=== PATIENT | male | born 1950 | race Caucasian/White ===

== ENCOUNTER 2020-10-02 16:34 | Outpatient (REF) | payer OTHER, SELFPAY | END 2020-10-02 16:35 | disposition home or self-care (01) | LOC: HO.LNP 16:34 | PROVIDERS: Visit Provider Internal Medicine | DX: Z20.822 Contact with and (suspected) exposure to COVID-19 (principal) | CPT/HCPCS: U0003; U0005 ==

== ENCOUNTER 2021-04-28 14:52 | Outpatient (REF) | payer OTHER, SELFPAY ==
--- NOTE | ~2021-04-28 | XR_ITS ---
EXAMINATION: XR CHEST CLINICAL INFORMATION: Wheezing COMPARISON: Previous chest x-ray January [address] January 2019 TECHNIQUE: 2 views of the chest were obtained. FINDINGS: The cardiac and mediastinal contours are stable. There is mild biapical pleural thickening that is stable. The lungs are otherwise clear. There is no pleural effusion or pneumothorax. There are degenerative changes of the spine. XR/XR chest 2V IMPRESSION: No evidence for acute disease in the chest.
[2021-04-28 16:37] LABS: Appearance Urine CLEAR; Color Urine YELLOW; Glucose Urine UA 500 MG/DL (NEG); Leukocyte Esterase Urine NEG (NEG); Nitrite Urine NEG (NEG); PH 5.5 (5.0-8.0); Specific Gravity - Urine >= 1.030 (1.005-1.025); Urine Blood NEG (NEG); Urine Ketones NEG (NEG); Urine Protein NEG (NEG-TRACE)
[2021-04-28 16:57] LABS: Alanine Aminotransferase 20 U/L (0-40); Albumin Level 4.4 g/dL (3.5-5.0); Alkaline Phosphatase 93 U/L (39-117); Anion Gap 16 (12-20); Aspartate Amino Transferase 12 U/L (5-37); Bilirubin Direct 0.2 mg/dL (0.0-0.5); Bilirubin Total 0.6 mg/dL (0.0-1.0); Blood Urea Nitrogen 13 mg/dL (9-16); Calcium 9.4 mg/dL (8.4-10.2); Carbon Dioxide 25 mmol/L (22-29); Chloride 101 mmol/L (96-108); Cholesterol 234 mg/dL; Estimated Glomerular Filt Rate > 60; Glucose Random 286 mg/dL (60-115); HDL Cholesterol 44 mg/dL; LDL Cholesterol Calculated 167 mg/dl; Potassium 4.5 mmol/L (3.3-5.1); Sodium 137 mmol/L (135-145); Total Protein 7.5 g/dL (6.5-8.0); Triglycerides 115 mg/dL
[2021-04-28 17:12] LABS: Erythrocyte Sedimentation Rate 13 MM/HR (0-15)
[2021-04-28 17:21] LABS: Thyroid Stimulating Hormone 1.14 uIU/mL (0.32-4.0)
[2021-04-28 17:51] LABS: Prostate Specific Antigen Scr 3.59 ng/mL (<0.05-4.0)
== END 2021-04-28 14:53 | disposition home or self-care (01) ==
LOC: HO.HMGCX 14:52
PROVIDERS: Visit Provider Internal Medicine
DX: R06.2 Wheezing (principal); R10.9 Unspecified abdominal pain; R35.89 Other polyuria; Z12.5 Encounter for screening for malignant neoplasm of prostate
CPT/HCPCS: 36415; 71046; 80048; 80061; 80076; 81003; 84153; 84443; 85652

== ENCOUNTER 2021-09-28 07:07 | Emergency (ER) | payer OTHER, SELFPAY ==
--- NOTE | ~2021-09-28 | XR_ITS ---
EXAMINATION: XR ABDOMEN KUB CLINICAL INDICATION: Constipation. COMPARISON: CT abdomen/pelvis 01/20/2019. TECHNIQUE: 3 views of the abdomen. FINDINGS: Nonobstructive bowel gas pattern. No significant stool burden. No free air on the decubitus views. No acute osseous abnormalities. XR/XR KUB IMPRESSION: Nonobstructive bowel gas pattern. No significant amount of stool burden.
[2021-09-28 07:15] VITALS: BP 170/75; PULSE 98; RESP 20; TEMP 36.7; O2SAT 96; BMI 30.8
[2021-09-28 08:36] LABS: Appearance Urine HAZY; Color Urine YELLOW; Glucose Urine UA 100 MG/DL (NEG); Leukocyte Esterase Urine NEG (NEG); Nitrite Urine NEG (NEG); Urine Blood NEG (NEG); Urine Ketones NEG (NEG); Urine Protein NEG (NEG-TRACE)
[2021-09-28 09:35] LABS: MANUAL DIFF FLAG NO
[2021-09-28 09:41] LABS: Basophils Percent Auto 0.3 % (0-2); Eosinophils Absolute Auto 0.3 X10*3/uL (0.0-0.4); Eosinophils Percent Auto 2.5 % (0-4); Hematocrit 41.4 % (42.0-52.0); Hemoglobin 13.9 g/dl (14.0-18.0); Imm Gran Abs Auto 0.07 X10*3/uL (0.00-0.03); Imm Gran Pct Auto 0.6 % (0.0-0.4); Lymphocytes Absolute Auto 1.5 X10*3/uL (1.2-4.9); Lymphocytes Percent Auto 12.3 % (20-40); Mean Corpuscular HGB Conc 33.6 g/dl (31.0-36.0); Mean Corpuscular Hemoglobin 30.5 pg (27.0-33.0); Mean Corpuscular Volume 90.8 fL (80.0-98.0); Mean Platelet Volume 9.5 fL (9.4-12.4); Monocytes Absolute Auto 0.9 X10*3/uL (0.1-1.2); Monocytes Percent Auto 7.4 % (2-11); Neutrophils Absolute Auto 9.3 x10*3/uL (2.0-8.3); Neutrophils Percent Auto 76.9 % (45-73); Platelet Count 300 X10*3/uL (160-400); Red Blood Count 4.56 X10*6/uL (4.60-5.80); Red Cell Distribution Width 13.2 % (11.0-16.0)
[2021-09-28 09:59] LABS: Alanine Aminotransferase 13 U/L (0-40); Albumin Level 3.9 g/dL (3.5-5.0); Alkaline Phosphatase 74 U/L (39-117); Anion Gap 13 (12-20); Aspartate Amino Transferase 11 U/L (5-37); Bilirubin Direct 0.2 mg/dL (0.0-0.5); Bilirubin Total 0.2 mg/dL (0.0-1.0); Blood Urea Nitrogen 26 mg/dL (9-16); Calcium 8.8 mg/dL (8.4-10.2); Carbon Dioxide 24 mmol/L (22-29); Chloride 109 mmol/L (96-108); Creatinine Clr Calc Pharmacy 82.3; Estimated Glomerular Filt Rate > 60; Glucose Random 166 mg/dL (60-115); Lipase 14 U/L (8-78); Sodium 142 mmol/L (135-145); Total Protein 6.7 g/dL (6.5-8.0)
--- NOTE | 2021-09-28 11:24 | ED.MALEGU ---
HPI - Male Genitourinary General Chief complaint: Urogenital-Male Stated complaint: problems going to the bathroom Time Seen by Provider: 09/28/21 11:17 Source: patient Mode of arrival: ambulatory Limitations: no limitations History of Present Illness HPI Narrative: Patient comes to the emergency room complaining of abdominal distension, states he is unable to urinate as well as he used to. Patient states his symptoms have been present for about 3 days. Patient denies fever chills, states his urine looks darker than usual, no dysuria or hematuria. Patient has been trying several [id number] medications for constipation. Related Data Previous Rx's Medication Instructions Recorded blood-glucose meter (Blood Glucose #1 ea 06/11/21 Monitoring kit) albuterol sulfate 90 mcg/actuation 2 puff PO Q6H PRN for wheezing #17 08/12/21 aerosol inhaler grams blood sugar diagnostic (ReliOn #50 ea 08/12/21 Prime Test Strips) bupropion HCl 300 mg 24 hr tablet, 300 mg PO DAILY #90 tabs 08/12/21 extended release fluoxetine 20 mg capsule 20 mg PO DAILY #90 caps 08/12/21 lancets 26 gauge #100 ea 08/12/21 metformin 500 mg tablet 500 mg PO BID #180 tabs 08/12/21 tamsulosin 0.4 mg capsule 0.4 mg PO DAILY #10 caps 09/28/21 Allergies Allergy/AdvReac Type Severity Reaction Status Date / Time acetaminophen [Tylenol] Allergy Unknown stomach Verified 08/13/21 13:50 upset Review of Systems Review of Systems: Constitutional : No Weight loss, No Fever, No Chills, No Night Sweats, No Fatigue, No Malaise ENT/Mouth : No Hearing loss, No Ear Pain, No Nasal Congestion, No Sinus Pain, No Hoarseness, No sore throat, No Rhinorrhea, No Swallowing Difficulty Eyes: No Eye Pain, No Swelling, No Redness, No Foreign Body, No Discharge, No Vision Changes Cardiovascular : No Chest Pain, No SOB, No Dyspnea on Exertion, No Orthopnea, No Edema, No Palpitations Respiratory : No Cough, No Sputum, No Wheezing, No Smoke Exposure, No Dyspnea Gastrointestinal : No Nausea, No Vomiting, No Diarrhea, complaining of 3 days of Constipation, No abdominal Pain, No Hematochezia, No Melena Genitourinary : No Dysuria, No Urinary Frequency, No Hematuria, No Urinary Incontinence, No Urgency, No Flank Pain, patient complaining of passing small amounts of urine Musculoskeletal : No joint pain, No Myalgias, No Joint Swelling Skin : No Skin Lesions, No rash Neuro : No Weakness, No Numbness, No Paresthesias, No Loss of Consciousness, No Dizziness, No Headache Psych : No Anxiety/Panic, No Depression, No SI/HI/AH/VH, No Social Issues, Heme/Lymph: No Bruising, No Bleeding,No Lymphadenopathy Endocrine : No Polyuria, No Polydipsia, No Temperature Intolerance [facility] Past Medical History Medical History Endogenous depression Urinary incontinence Surgical History History of back surgery History of toe surgery Family History Family History Other Mental health disorder Social History Social History Housing: House Alcohol intake: never Patient Tobacco Use Status: Current everyday Tobacco user Tobacco use type: Cigarette Cigarette Packs Per Day: 0.5 Cigarettes Per Day: 10 Smoked in Last 30 Days: Yes e-Cigarette/Vaping Use: Never Used Second Hand Smoke Exposure: Yes Use of substances other than those prescribed or required for medical reasons: No Advance Directives: No Advance Directives Information Provided: Yes service: No Current occupational status: retired and disabled Current occupational exposures/hazards: No Cognitive needs: Yes (cane) Hearing needs: No Vision needs: Yes (reading glasses) Physical Exam Vital Signs: Vital Signs: Last Vital Signs Temp 98.4 F 09/28/21 14:24 Pulse 82 09/28/21 14:24 Resp 16 09/28/21 14:24 BP 155/71 H 09/28/21 14:24 Pulse Ox 100 09/28/21 14:24 O2 Del Method 09/28/21 14:24 BMI result Body Mass Index 30.8 Const: Other: Appearance: Alert. Oriented X3. No acute distress. Well-appearing Eyes: Right-sided Pupil equal, round and reactive to light. Patient has a patch in the left eye ENT: Pharynx normal. Neck: Normal inspection. Neck supple. No lymph nodes noted. No crepitus CVS: Normal heart rate and rhythm. Pulses normal. Normal S1 and S2 Respiratory: No respiratory distress. Breath sounds normal. No Wheezing. No rales Abdomen: Soft and nontender. No rigidity. No distention. No guarding, no rebound, moderate fullness and discomfort in the suprapubic area. Skin: Skin warm and dry. Normal skin color. Normal skin turgor. Extremities: No lower extremity edema. No Lacerations. No Rash Neuro: Oriented X 3. No motor deficit. No sensory deficit. Moving all extremities. No slurred speech. CN 2 through 12 grossly intact Psych: calm, cooperative, normal affect Course Course Course Narrative: KUB and bladder scan pending.\ I discussed the labs with the patient, no acute findings. Patient's white blood cell count is slightly bumped, no signs of infection. Urinalysis negative. BUN and creatinine within normal limits. Bedside bladder scan shows more than 1 L of urine. Myles catheter has been inserted. 2000 mL of urine were obtained. Patient feeling much better. KUB negative for obstructive gas/ bowel pattern Patient instructed to follow up with Urology, patient needs his Myles removed in 2 days. MDM - Male Genitourinary Lab Data Result diagrams: 09/28/21 09:25 09/28/21 09:25 Labs: Lab Results 09/28/21 09/28/21 09/28/21 Range/Units 08:24 09:25 09:25 WBC 12.0 H (4.8-10.8) X10*3/uL RBC 4.56 L (4.60-5.80) X10*6/uL Hgb 13.9 L (14.0-18.0) g/dl Hct 41.4 L (42.0-52.0) % MCV 90.8 (80.0-98.0) fL MCH 30.5 (27.0-33.0) pg MCHC 33.6 (31.0-36.0) g/dl RDW 13.2 (11.0-16.0) % Plt Count 300 (160-400) X10*3/uL MPV 9.5 (9.4-12.4) fL Immature Gran % (Auto) 0.6 H (0.0-0.4) % Neut % (Auto) 76.9 H (45-73) % Lymph % (Auto) 12.3 L (20-40) % [place] % (Auto) 7.4 (2-11) % Eos % (Auto) 2.5 (0-4) % Baso % (Auto) 0.3 (0-2) % Lymph # (Auto) 1.5 (1.2-4.9) X10*3/uL [place] # (Auto) 0.9 (0.1-1.2) X10*3/uL Eos # (Auto) 0.3 (0.0-0.4) X10*3/uL Baso # (Auto) 0.0 (0.0-0.2) X10*3/uL Abs Immat Gran (auto) 0.07 H (0.00-0.03) X10*3/uL Absolute Neuts (auto) 9.3 H (2.0-8.3) x10*3/uL Absolute Nucleated RBC 0.000 (0.0-0.012) X10*3/uL Nucleated RBC % (auto) 0.0 (0.0-0.2) /100WBC Sodium 142 (135-145) mmol/L Potassium 4.0 (3.3-5.1) mmol/L Chloride 109 H (96-108) mmol/L Carbon Dioxide 24 (22-29) mmol/L Anion Gap 13 (12-20) BUN 26 H D (9-16) mg/dL Creatinine 1.14 (0.5-1.4) mg/dL Estim Creat Clear Calc 82.3 Estimated GFR > 60 Random Glucose 166 H D (60-115) mg/dL Calcium 8.8 D (8.4-10.2) mg/dL Total Bilirubin 0.2 (0.0-1.0) mg/dL Direct Bilirubin 0.2 (0.0-0.5) mg/dL AST 11 (5-37) U/L ALT 13 (0-40) U/L Alkaline Phosphatase 74 D (39-117) U/L Total Protein 6.7 (6.5-8.0) g/dL Albumin 3.9 (3.5-5.0) g/dL Lipase 14 (8-78) U/L Urine Color YELLOW Urine Appearance HAZY Urine pH 6.0 (5.0-8.0) Ur Specific [place] 1.010 (1.005-1.025) Urine Protein NEG (NEG-TRACE) MG/DL Urine Glucose (UA) 100 H (NEG) MG/DL Urine Ketones NEG (NEG) MG/DL Urine Blood NEG (NEG) Urine Nitrite NEG (NEG) Ur Leukocyte Esterase NEG (NEG) Discharge Plan Discharge Clinical Impression: Acute urinary retention Patient Disposition: Home, Self-Care Instructions: Urinary Retention in Men (ED), Myles Catheter Placement and Care (ED) Additional Instructions: Your Myles catheter needs to be removed in 2 days. Please follow-up with Urology, if no appointments are available, please return to the emergency room to have your Myles catheter removed. Please follow-up with your primary care physician tomorrow. If you have any worsening or new symptoms, please return to the emergency room or call 911 Prescriptions: New tamsulosin 0.4 mg capsule 0.4 mg PO DAILY Qty: 10 0RF No Action albuterol sulfate 90 mcg/actuation HFA aerosol inhaler 2 puff PO Q6H PRN (Reason: for wheezing) Qty: 17 1RF (DME) ReliOn Prime Test Strips Strip See Rx Instructions miscellaneous .MEDSUPPLY Qty: 50 0RF Rx Instructions: check bs 1-2/day bupropion HCl 300 mg tablet extended release 24 hr 300 mg PO DAILY Qty: 90 1RF fluoxetine 20 mg capsule 20 mg PO DAILY Qty: 90 1RF (DME) lancets 26 gauge misc See Rx Instructions miscellaneous .MEDSUPPLY Qty: 100 0RF Rx Instructions: check BS 1-2x/day metformin 500 mg tablet 500 mg PO BID Qty: 180 1RF (DME) blood-glucose meter [Blood Glucose Monitoring] Kit See Rx Instructions miscellaneous .MEDSUPPLY Qty: 1 0RF Rx Instructions: As directed Referrals: Idris Willis MD [Physician] - 2 days
[2021-09-28 11:38] VITALS: BP 169/81; PULSE 89; RESP 20; TEMP 36.8; O2SAT 97
[2021-09-28] MEDS: Lidocaine HCl 2 % Urojet 10 ML JEL.PF.APP 20 ML TOPICAL (12:13)
[2021-09-28 14:24] VITALS: BP 155/71; PULSE 82; RESP 16; TEMP 36.9; O2SAT 100
== END 2021-09-28 14:45 | disposition home or self-care (01) ==
PROVIDERS: Emergency Provider Emergency Medicine
DX: R33.9 Retention of urine, unspecified (principal); F17.210 Nicotine dependence, cigarettes, uncomplicated; Z71.6 Tobacco abuse counseling; Z79.899 Other long term (current) drug therapy
CPT/HCPCS: 36415; 51702; 51798; 74018; 80048; 80076; 81003; 83690; 85025; 99284; 99285

== ENCOUNTER → 2021-10-29 10:21 | Outpatient (BNVA) | payer OTHER, SELFPAY | PROVIDERS: Visit Provider Urology | DX: R33.9 Retention of urine, unspecified (principal) | CPT/HCPCS: 51700; 51798 ==

== ENCOUNTER 2021-10-29 21:04 | Inpatient (IN) | payer OTHER, SELFPAY ==
--- NOTE | ~2021-10-29 | US_ITS ---
EXAMINATION: US RETROPERITONEAL LIMITED (RENAL ONLY) CLINICAL INFORMATION: Follow-up hydronephrosis. COMPARISON: CT abdomen pelvis October 29, 2021 TECHNIQUE: Grayscale and color Doppler imaging was obtained of the kidneys. FINDINGS: RIGHT KIDNEY: 13.8 x 6.0 x 6.0 cm (SAG x AP x TRV). The kidney is normal in size, contour, and echogenicity. Renal cortical thickness is normal. No calculi or focal parenchymal lesions. No hydronephrosis. LEFT KIDNEY: 11.6 x 7.3 x 6.2 cm (SAG x AP x TRV). The kidney is normal in size, contour, and echogenicity. Renal cortical thickness is normal. No calculi or focal parenchymal lesions. No hydronephrosis. Incidental finding: Physiologically distended gallbladder containing several gallstones. No definitive gallbladder wall thickening. No pericholecystic fluid appreciated. US/US renal BI IMPRESSION: -No hydronephrosis of either kidney. -Cholelithiasis..
--- NOTE | ~2021-10-29 | CT_ITS ---
EXAMINATION: CT ABDOMEN AND PELVIS WITHOUT CONTRAST CLINICAL INFORMATION: Left flank pain COMPARISON: 01/20/2019 TECHNIQUE: Multidetector volumetric imaging was performed from the superior aspect of the liver through the pubic symphysis. Sagittal and coronal reformatted images were obtained on the technologist's workstation. This CT examination was performed using dose optimization techniques as appropriate, variously including the following: *Automated exposure control *Adjustment of mA and/or kV according to patient size (this includes techniques or standardized protocols for targeted exams where dose is matched to indication/reason for exam; i.e. extremities or head) *Use of iterative reconstruction technique DLP: 1114 mGy-cm FINDINGS: LUNG BASES: The visualized lung bases are unremarkable. LIVER, GALLBLADDER, AND BILIARY TREE: The liver is normal in size, shape, and attenuation. No focal hepatic lesion or biliary ductal dilatation is present. Cholelithiasis is noted without appreciable gallbladder wall thickening or surrounding stranding. PANCREAS: Partially atrophic. SPLEEN: Unremarkable. ADRENAL GLANDS: Redemonstrated nodular appearance of both adrenal glands as well as left adrenal calcifications, without significant change from prior. Overall appearance favors a benign processes such as adrenal hyperplasia and post infectious/inflammatory sequelae of the left adrenal gland. KIDNEYS AND URETERS: There is mild to moderate bilateral hydroureteronephrosis with no obstructing calculus seen. Limited assessment for pyelonephritis without intravenous contrast. BLADDER: Partially distended with wall thickening and mild surrounding stranding. Foci of gas noted in the anterior bladder. GASTROINTESTINAL TRACT: Small hiatal hernia versus distended distal esophagus. No evidence of bowel obstruction or significant wall thickening. The appendix is unremarkable. No free fluid or free air is seen. ABDOMINAL WALL: No significant hernia is appreciated. LYMPH NODES: Normal. VASCULAR: There is atherosclerotic calcification along the aorta. PELVIC VISCERA: Unremarkable. OSSEOUS STRUCTURES: Degenerative changes are noted in the spine. CT/CT abdomen pelvis wo con IMPRESSION: Bladder wall thickening with adjacent stranding, suspicious for cystitis. Foci of gas are also noted in the bladder which could be due to emphysematous cystitis versus sequelae of recent catheterization. Mild to moderate bilateral hydronephrosis, without obstructing calculus. Limited assessment for pyelonephritis without intravenous contrast.
[2021-10-29 21:18] VITALS: BP 177/95; PULSE 119; RESP 16; TEMP 37.4; O2SAT 95; BMI 30.8
[2021-10-29 22:11] LABS: MANUAL DIFF FLAG NO
[2021-10-29 22:13] LABS: Basophils Absolute Auto 0.1 X10*3/uL (0.0-0.2); Basophils Percent Auto 0.4 % (0-2); Eosinophils Absolute Auto 0.1 X10*3/uL (0.0-0.4); Eosinophils Percent Auto 0.7 % (0-4); Hematocrit 45.1 % (42.0-52.0); Hemoglobin 15.7 g/dl (14.0-18.0); Imm Gran Pct Auto 0.6 % (0.0-0.4); Lymphocytes Absolute Auto 1.8 X10*3/uL (1.2-4.9); Lymphocytes Percent Auto 9.8 % (20-40); Mean Corpuscular HGB Conc 34.8 g/dl (31.0-36.0); Mean Corpuscular Hemoglobin 30.2 pg (27.0-33.0); Mean Corpuscular Volume 86.7 fL (80.0-98.0); Mean Platelet Volume 9.1 fL (9.4-12.4); Monocytes Absolute Auto 0.7 X10*3/uL (0.1-1.2); Neutrophils Absolute Auto 15.2 x10*3/uL (2.0-8.3); Neutrophils Percent Auto 84.5 % (45-73); Platelet Count 359 X10*3/uL (160-400); Red Cell Distribution Width 12.8 % (11.0-16.0)
[2021-10-29 22:43] LABS: Alanine Aminotransferase 11 U/L (0-40); Albumin Level 4.4 g/dL (3.5-5.0); Alkaline Phosphatase 94 U/L (39-117); Anion Gap 21 (12-20); Aspartate Amino Transferase 10 U/L (5-37); Bilirubin Total 0.4 mg/dL (0.0-1.0); Blood Urea Nitrogen 22 mg/dL (9-16); Calcium 9.5 mg/dL (8.4-10.2); Carbon Dioxide 20 mmol/L (22-29); Chloride 103 mmol/L (96-108); Creatinine Clr Calc Pharmacy 84.5; Estimated Glomerular Filt Rate > 60; Glucose Random 308 mg/dL (60-115); Potassium 4.4 mmol/L (3.3-5.1); Sodium 140 mmol/L (135-145); Total Protein 7.7 g/dL (6.5-8.0)
--- NOTE | 2021-10-29 23:46 | ED.MALEGU ---
HPI - Male Genitourinary General Chief complaint: Urogenital-Male Stated complaint: unable to urinate,severe pain Time Seen by Provider: 10/29/21 23:24 Source: patient Mode of arrival: ambulatory Limitations: no limitations History of Present Illness HPI Narrative: 71-year-old male came in for evaluation of this left flank/ left groin pain, and unable to urinate. Patient's symptoms started about a week ago, patient had history of kidney stone reportedly patient ureteric stent that was removed, decline nausea vomiting or fever. Patient was scheduled to see urologist in the morning but could not wait because of the pain. Related Data Previous Rx's Medication Instructions Recorded blood-glucose meter (Blood Glucose #1 ea 06/11/21 Monitoring kit) albuterol sulfate 90 mcg/actuation 2 puff PO Q6H PRN for wheezing #17 08/12/21 aerosol inhaler grams blood sugar diagnostic (ReliOn #50 ea 08/12/21 Prime Test Strips) bupropion HCl 300 mg 24 hr tablet, 300 mg PO DAILY #90 tabs 08/12/21 extended release fluoxetine 20 mg capsule 20 mg PO DAILY #90 caps 08/12/21 lancets 26 gauge #100 ea 08/12/21 metformin 500 mg tablet 500 mg PO BID #180 tabs 08/12/21 terazosin 5 mg capsule 5 mg PO BEDTIME 30 days #30 caps 10/29/21 Allergies Allergy/AdvReac Type Severity Reaction Status Date / Time acetaminophen [Tylenol] Allergy Unknown stomach Verified 08/13/21 13:50 upset Review of Systems Review of Systems: All other systems are reviewed and are negative Constitutional: Reports as per HPI and Reports no additional constitutional complaints Eyes: Reports as per HPI and Reports no additional eye complaints Reports system reviewed and no additional complaints, except as documented Cardiovascular: Reports as per HPI and Reports no additional cardiovascular complaints Respiratory: Reports as per HPI and Reports no additional respiratory complaints Gastrointestinal: Reports as per HPI and Reports no additional gastrointestinal complaints Genitourinary: Reports no additional female genitourinary complaints Musculoskeletal: Reports no additional musculoskeletal complaints Skin/Breast: Reports system reviewed and no additional complaints, except as docu Psychiatric: Reports no additional psychiatric complaints Endocrine: Reports no additional endocrine complaints Hematologic/Lymphatic: Reports no additional hematologic/lymphatic complaints Allergic/Immunologic: Reports no additional allergic/immunologic complaints Reports system reviewed and no additional complaints, except as documented and Reports Abnormal speech present [facility] Past Medical History Medical History Endogenous depression Urinary incontinence Surgical History History of back surgery History of toe surgery Family History Family History Other Mental health disorder Social History Social History Housing: House Alcohol intake: never Patient Tobacco Use Status: Current everyday Tobacco user Tobacco use type: Cigarette Cigarette Packs Per Day: 0.5 Cigarettes Per Day: 10 e-Cigarette/Vaping Use: Never Used Second Hand Smoke Exposure: Yes Advance Directives: No Advance Directives Information Provided: No service: No Current occupational status: retired and disabled Current occupational exposures/hazards: No Cognitive needs: Yes (cane) Hearing needs: No Vision needs: Yes (reading glasses) Physical Exam Vital Signs: Vital Signs: Last Vital Signs Temp 99.3 F 10/29/21 21:18 Pulse 119 H 10/29/21 21:18 Resp 16 10/29/21 21:18 BP 177/95 H 10/29/21 21:18 Pulse Ox 95 10/29/21 21:18 O2 Del Method 10/29/21 21:18 BMI result Body Mass Index 30.8 vital signs have been reviewed as appeared to be correct. Blood pressure normal. Heart rate normal. Respiration rate normal. Temperature normal. Oxygen saturation normal. Appearance: Alert. Oriented X3. No acute distress. Head: Normal external exam. Normocephalic. Atraumatic. No Kinney signs noted. No raccoon eyes noted Eyes: PERRLA. EOMI. Conjunctiva and sclera normal. Eyelids normal. ENT: TM's Normal. Pharynx normal. Uvula midline. Moist mucous membranes. No trismus noted. No drooling noted. No muffled voice noted. Neck: Normal inspection. Neck supple. FROM. No adenopathy. Thyroid Normal. No meningeal signs. No neck mass noted. CVS: Normal heart rate and rhythm. Heart sound normal. No murmurs noted. Pulses normal throughout. Respiratory: No respiratory distress. Painless inspiration. Breath sounds normal. No wheezes/rales/rhonchi noted. Chest nontender. No accessory muscle usage noted or decreased air movement noted. Abdomen: Soft, suprapubic tenderness, no guarding, rebound.. Bowel sounds normal in all 4 quadrants. No distention noted. No organomegaly noted. No visible injury noted. Back: left CVA tenderness. Full range of motion noted. Skin: Skin warm and dry. Normal skin color. Normal skin turgor. No rashes/lesions/lacerations noted. Extremities: No lower extremity edema. Extremities exhibit normal range of motion. Extremities nontender. Neuro: Oriented X 3. Cranial nerve exam: II-XII are grossly intact No motor deficit. No sensory deficit. Reflexes normal. Course Reevaluation(s) Reevaluation #1: patient now meet criteria for sepsis we will check lactic acid and blood cultures will give 1 L of normal saline, and antibiotic 1 g of ceftriaxone And Zosyn to cover for possible anaerobic bacterial infection. Time: 01:09 [facility] - Male Genitourinary Medical Records Attestation: I reviewed the patient's medical records. Lab Data Attestation: I reviewed the patient's lab results. Result diagrams: 10/29/21 22:06 10/29/21 22:06 Labs: Lab Results 10/29/21 10/29/21 10/29/21 Range/Units 22:06 22:06 23:52 WBC 18.0 H (4.8-10.8) X10*3/uL RBC 5.20 (4.60-5.80) X10*6/uL Hgb 15.7 (14.0-18.0) g/dl Hct 45.1 (42.0-52.0) % MCV 86.7 (80.0-98.0) fL MCH 30.2 (27.0-33.0) pg MCHC 34.8 (31.0-36.0) g/dl RDW 12.8 (11.0-16.0) % Plt Count 359 (160-400) X10*3/uL MPV 9.1 L (9.4-12.4) fL Immature Gran % (Auto) 0.6 H (0.0-0.4) % Neut % (Auto) 84.5 H (45-73) % Lymph % (Auto) 9.8 L (20-40) % [place] % (Auto) 4.0 (2-11) % Eos % (Auto) 0.7 (0-4) % Baso % (Auto) 0.4 (0-2) % Lymph # (Auto) 1.8 (1.2-4.9) X10*3/uL [place] # (Auto) 0.7 (0.1-1.2) X10*3/uL Eos # (Auto) 0.1 (0.0-0.4) X10*3/uL Baso # (Auto) 0.1 (0.0-0.2) X10*3/uL Abs Immat Gran (auto) 0.10 H (0.00-0.03) X10*3/uL Absolute Neuts (auto) 15.2 H (2.0-8.3) x10*3/uL Absolute Nucleated RBC 0.000 (0.0-0.012) X10*3/uL Nucleated RBC % (auto) 0.0 (0.0-0.2) /100WBC Sodium 140 (135-145) mmol/L Potassium 4.4 (3.3-5.1) mmol/L Chloride 103 (96-108) mmol/L Carbon Dioxide 20 L (22-29) mmol/L Anion Gap 21 H (12-20) BUN 22 H (9-16) mg/dL Creatinine 1.11 (0.5-1.4) mg/dL Estim Creat Clear Calc 84.5 Estimated GFR > 60 Random Glucose 308 H D (60-115) mg/dL Calcium 9.5 D (8.4-10.2) mg/dL Total Bilirubin 0.4 (0.0-1.0) mg/dL AST 10 (5-37) U/L ALT 11 (0-40) U/L Alkaline Phosphatase 94 D (39-117) U/L Total Protein 7.7 (6.5-8.0) g/dL Albumin 4.4 (3.5-5.0) g/dL Lipase 99 H (8-78) U/L Urine Color Yellow Urine Appearance Clear Urine pH 5.5 (5.0-8.0) Ur Specific [place] 1.010 (1.005-1.025) Urine Protein Trace (Neg-Trace) mg/dL Urine Glucose (UA) Negative (Negative) mg/dL Urine Ketones Negative (Negative) mg/dL Urine Blood Moderate (2+) H (Negative) Urine Nitrite Negative (Negative) Ur Leukocyte Esterase Large (3+) H (Negative) Urine RBC 3-5 H (0-2) /HPF Urine WBC >50 H (0-5) /HPF Urine WBC Clumps Present Ur Squamous Epith Cells 0-2 (0-2) /HPF Urine Bacteria None Seen (None Seen) Hyaline Casts 0-2 (0-2) /LPF Imaging Data CT scan - abdomen: Attestation: I personally reviewed and interpreted this imaging study as follows: Radiologist's impression: Bladder wall thickening with adjacent stranding, suspicious for cystitis. Foci of gas are also noted in the bladder which could be due to emphysematous cystitis versus sequelae of recent catheterization. Mild to moderate bilateral hydronephrosis, without obstructing calculus. Limited assessment for pyelonephritis without intravenous contrast. Discharge Plan Discharge Clinical Impression: Acute pyelonephritis Patient Disposition: Admitted As Inpatient
[2021-10-29 23:51] LABS: Lipase 99 U/L (8-78)
[2021-10-29 23:58] LABS: Appearance Urine Clear; Color Urine Yellow; Glucose Urine UA Negative (Negative); Leukocyte Esterase Urine Large (3+) (Negative); Nitrite Urine Negative (Negative); PH 5.5 (5.0-8.0); Urine Blood Moderate (2+) (Negative); Urine Ketones Negative (Negative); Urine Protein Trace mg/dL (Neg-Trace)
[2021-10-30 00:09] LABS: Bacteria Urine None Seen (None Seen); Hyaline Casts Urine 0-2 /LPF (0-2); Squamous Epithelial Cell Urine 0-2 /HPF (0-2); UACC Culture Trigger YES; WBC Clumps Urine Present; WBC Urine >50 /HPF (0-5)
[2021-10-30] MEDS: cefTRIAXone sodium 1 GM in 0.9 % Sodium Chloride 50 ML IV (01:20)
[2021-10-30] MEDS: 0.9 % Sodium Chloride 1,000 ML 999 ML IV (01:21)
[2021-10-30 01:57] LABS: Lactic Acid 1.2 mmol/L (0.5-2.0)
[2021-10-30 02:00] VITALS: BP 148/80; PULSE 113; RESP 16; TEMP 37.2; O2SAT 96
[2021-10-30] MEDS: Piperacillin Sodium/Tazobactam 3.375 GM in 0.9 % Sodium Chloride 50 ML IV (03:10)
[2021-10-30 03:26] VITALS: BP 148/80; PULSE 113
[2021-10-30] MEDS: Lactated Ringers 1,000 ML 100 ML IVCONT ×2 (05:37→15:12)
[2021-10-30] MEDS: Heparin Sodium,Porcine 5,000 UNIT/ML VIAL 5000 UNIT SUBCUT ×3 (05:38→20:03)
--- NOTE | 2021-10-30 05:56 | PM.IMHP ---
History of Present Illness Date of Service: 10/30/21 Chief Complaint: difficulty urinating 71-year-old male with past medical history of type 2 diabetes, urinary incontinence who presents to the hospital with complaints of urinary retention. Patient reports that he has been having urinary frequency and dysuria for couple of weeks now, he was having frequent urinary symptoms but starting yesterday patient had difficulty urinating and was now experiencing urinary retention. He is all clear complaining of bilateral flank pain radiating to the groin, patient denies any fever or chills, he reportedly had stent in place that were removed On day of presentation. No note from outside urology in system. Patient also had an appointment with Dr. gladys fraser but could not wait due to the pain occurred he denies any fever or chills, no nausea vomiting, no diarrhea or constipation at this time, and no lower extremity edema, no chest pain, shortness of breath. On arrival to the ED patient has a temp of 99.3, heart rate of 119, slightly elevated blood pressure Satting 95% on room air Labs are significant for WBC count of 18, UA that is positive for large leukocyte Estrace, WBC as well as blood and RBC Abdominal CT shows evidence of cystitis with no evidence of kidney stones patient started on IV antibiotics will be admitted for further management Review of Systems Review of Systems: Yes all other systems are reviewed and are negative [facility] Medical History Endogenous depression Urinary incontinence Family History Other Mental health disorder Surgical History History of back surgery History of toe surgery Social History Housing: House Alcohol intake: never Patient Tobacco Use Status: Current everyday Tobacco user Tobacco use type: Cigarette Cigarette Packs Per Day: 0.5 Cigarettes Per Day: 10 e-Cigarette/Vaping Use: Never Used Second Hand Smoke Exposure: Yes Advance Directives: No Advance Directives Information Provided: No service: No Current occupational status: retired and disabled Current occupational exposures/hazards: No Cognitive needs: Yes (cane) Hearing needs: No Vision needs: Yes (reading glasses) Meds Allergies Allergy/AdvReac Type Severity Reaction Status Date / Time acetaminophen [Tylenol] Allergy Unknown stomach Verified 08/13/21 13:50 upset Active Medications: Current Medications Acetaminophen (Acetaminophen 325 Mg Tablet) 650 mg PO Q6H PRN PRN Reason: Pain, Mild (Pain Scale 1-3) Docusate Sodium (Docusate Sodium 100 Mg Capsule) 100 mg PO DAILY PRN PRN Reason: Constipation Heparin Sodium (Porcine) (Heparin Sodium,Porcine 5,000 Unit/Ml Vial) 5,000 unit SUBCUT Q8H [facility] Last Admin: 10/30/21 05:38 Dose: 5,000 unit Ceftriaxone Sodium 1 gm/ (Sodium Chloride) 50 mls @ 100 mls/hr IV Q24H [facility] Lactated Ringer's (Lr) 1,000 mls @ 100 mls/hr IVCONT .Q10H [facility] Last Admin: 10/30/21 05:37 Dose: 100 mls/hr Ondansetron HCl (Ondansetron Hcl 4 Mg/2 Ml Vial) 4 mg IVPUSH Q8H PRN PRN Reason: Nausea and Vomiting Sodium Chloride (0.9 % Sodium Chloride Flush 3 Ml Syringe) 3 ml IVFLUSH QSHIFT [facility] Physical Exam Vital Signs and Narrative: Vital Signs: Last Vital Signs Temp 98.9 F 10/30/21 02:00 Pulse 113 H 10/30/21 03:26 Resp 16 10/30/21 02:00 BP 148/80 H 10/30/21 03:26 Pulse Ox 96 10/30/21 02:00 O2 Del Method 10/30/21 02:00 BMI result Body Mass Index 30.8 Const: General: cooperative, no acute distress and poor hygiene Orientation/consciousness: patient oriented x3 Eyes: General: appearance normal, both eyes and all related structures Resp: Effort & Inspection: normal respiratory effort Auscultation: clear to auscultation bilaterally Cardio: Rate: regular rate Rhythm: regular rhythm GI: Palpation (GI): Soft to palpation Auscultation: normal bowel sounds : Other: bilateral CVA tenderness Skin: General skin exam: no rashes or lesions noted Neuro: General: patient oriented x3 Cognition (Neuro): normal cognition Extrem: General: Yes normal to inspection and Yes no pedal edema Results Labs CBC and Chem 7: 10/29/21 22:06 10/29/21 22:06 Labs: Laboratory Results - last 24 hr 10/29/21 10/29/21 10/29/21 22:06 22:06 23:52 MCV 86.7 MCH 30.2 MCHC 34.8 RDW 12.8 Plt Count 359 MPV 9.1 L Immature Gran % (Auto) 0.6 H Neut % (Auto) 84.5 H Lymph % (Auto) 9.8 L [place] % (Auto) 4.0 Eos % (Auto) 0.7 Baso % (Auto) 0.4 Lymph # (Auto) 1.8 [place] # (Auto) 0.7 Eos # (Auto) 0.1 Baso # (Auto) 0.1 Abs Immat Gran (auto) 0.10 H Absolute Neuts (auto) 15.2 H Absolute Nucleated RBC 0.000 Nucleated RBC % (auto) 0.0 Anion Gap 21 H Estim Creat Clear Calc 84.5 Estimated GFR > 60 Random Glucose 308 H D Lactic Acid Calcium 9.5 D Total Bilirubin 0.4 AST 10 ALT 11 Alkaline Phosphatase 94 D Total Protein 7.7 Albumin 4.4 Lipase 99 H Urine Color Yellow Urine Appearance Clear Urine pH 5.5 Ur Specific [place] 1.010 Urine Protein Trace Urine Glucose (UA) Negative Urine Ketones Negative Urine Blood Moderate (2+) H Urine Nitrite Negative Ur Leukocyte Esterase Large (3+) H Urine RBC 3-5 H Urine WBC >50 H Urine WBC Clumps Present Ur Squamous Epith Cells 0-2 Urine Bacteria None Seen Hyaline Casts 0-2 10/30/21 01:27 MCV MCH MCHC RDW Plt Count MPV Immature Gran % (Auto) Neut % (Auto) Lymph % (Auto) [place] % (Auto) Eos % (Auto) Baso % (Auto) Lymph # (Auto) [place] # (Auto) Eos # (Auto) Baso # (Auto) Abs Immat Gran (auto) Absolute Neuts (auto) Absolute Nucleated RBC Nucleated RBC % (auto) Anion Gap Estim Creat Clear Calc Estimated GFR Random Glucose Lactic Acid 1.2 Calcium Total Bilirubin AST ALT Alkaline Phosphatase Total Protein Albumin Lipase Urine Color Urine Appearance Urine pH Ur Specific [place] Urine Protein Urine Glucose (UA) Urine Ketones Urine Blood Urine Nitrite Ur Leukocyte Esterase Urine RBC Urine WBC Urine WBC Clumps Ur Squamous Epith Cells Urine Bacteria Hyaline Casts Imaging Radiologist's Impressions: Impressions Abdomen/Pelvis CT 10/30/21 00:20 IMPRESSION: Bladder wall thickening with adjacent stranding, suspicious for cystitis. Foci of gas are also noted in the bladder which could be due to emphysematous cystitis versus sequelae of recent catheterization. Mild to moderate bilateral hydronephrosis, without obstructing calculus. Limited assessment for pyelonephritis without intravenous contrast. Assessment and Plan (1) Acute pyelonephritis: Status: Acute (2) UTI (urinary tract infection): Status: Acute (3) Urinary retention: Status: Acute (4) Hydronephrosis: Status: Acute Plan 71-year-old male with past medical history of type 2 diabetes, and urinary incontinence presents to the hospital with complaints of urinary retention found to have UTI/cystitis,/pyelonephritis # acute pyelonephritis - UA positive, evidence of cystitis on CT with bilateral nephrosis, patient also has bilateral CVA tenderness, therefore clinically patient has pyelonephritis - will treat with IV antibiotics - follow cultures # UTI - acute cystitis - IV antibiotics - follow cultures # hydronephrosis - likely secondary to UTI/urinary retention/versus possible BPH - will treat UTI - will also consult urology to evaluate for BPH # urinary retention - secondary to above - Myles catheter in place # diabetes - low-dose sliding scale insulin - diabetic diet DVT prophylaxis: Lovenox given the acute pyelonephritis and need for IV antibiotics patient will be admitted and I anticipate a minimum 2 night hospital stay for further management and monitoring Quality Stroke Does the patient have a stroke diagnosis?: No VTE Prior VTE?: No VTE Risk Level:: Medical - moderate - high VTE Device Contraindication: Treatment Not Indicated VTE Drug Contraindication: N/A - Med Ordered
[2021-10-30 06:11] LABS: MANUAL DIFF FLAG NO
[2021-10-30 06:16] LABS: Basophils Percent Auto 0.3 % (0-2); Eosinophils Percent Auto 0.1 % (0-4); Hematocrit 44.3 % (42.0-52.0); Hemoglobin 14.9 g/dl (14.0-18.0); Imm Gran Abs Auto 0.09 X10*3/uL (0.00-0.03); Imm Gran Pct Auto 0.6 % (0.0-0.4); Lymphocytes Absolute Auto 1.5 X10*3/uL (1.2-4.9); Lymphocytes Percent Auto 9.6 % (20-40); Mean Corpuscular HGB Conc 33.6 g/dl (31.0-36.0); Mean Corpuscular Hemoglobin 29.7 pg (27.0-33.0); Mean Corpuscular Volume 88.4 fL (80.0-98.0); Mean Platelet Volume 9.5 fL (9.4-12.4); Monocytes Percent Auto 6.6 % (2-11); Neutrophils Percent Auto 82.8 % (45-73); Platelet Count 355 X10*3/uL (160-400); Red Blood Count 5.01 X10*6/uL (4.60-5.80); Red Cell Distribution Width 12.9 % (11.0-16.0); White Blood Count 15.7 X10*3/uL (4.8-10.8)
[2021-10-30 06:30] LABS: Anion Gap 18 (12-20); Blood Urea Nitrogen 26 mg/dL (9-16); Calcium 9.1 mg/dL (8.4-10.2); Carbon Dioxide 17 mmol/L (22-29); Chloride 109 mmol/L (96-108); Creatinine Clr Calc Pharmacy 88.5; Estimated Glomerular Filt Rate > 60; Glucose Random 236 mg/dL (60-115); Potassium 4.4 mmol/L (3.3-5.1); Sodium 140 mmol/L (135-145)
--- NOTE | 2021-10-30 07:07 | PC.NURSE ---
Pt bladder scanned 999ml, Pt was straight cathed prior to this scan.
--- NOTE | 2021-10-30 07:14 | PC.NURSE ---
Bladder scanned this pt at 0710. Pt still retaining 999mL. Report from night nurse stating that the patient was straight catheterized, unsure of how much was drained.
[2021-10-30 07:36] LABS: Glucose, Whole Blood 240 mg/dL (60-115)
[2021-10-30] MEDS: Insulin Lispro 100 UNIT/ML 3 ML VIAL SUBCUT ×2 (07:38→22:11)
[2021-10-30] MEDS: 0.9 % Sodium Chloride Flush 3 ML SYRINGE IVFLUSH ×2 (07:39→15:13)
[2021-10-30 07:48] VITALS: BP 166/113; PULSE 106; RESP 16; O2SAT 96
--- NOTE | 2021-10-30 08:08 | PC.NURSE ---
Pt still retaining urine, Dr. Haq ordered valenzuela catheter. Pt educated on purpose of valenzuela and agreeable to procedure. Pt tolerated procedure well and states no discomfort.
--- NOTE | 2021-10-30 10:14 | MHC.CM.PN ---
Addendum entered by Elisa Perez 10/30/21 11:44: PCP: HAWA KEEN FROM [address], [place] Original Note: PATIENT LIVES WITH SPOUSE HCP/COPY REQUESTED USES CANE, REPORTS HE IS INDEPENDENT AT HOME AND COMMUNITY DENIES RECEIVING ANY HOME SERVICES KAHLIL JOHNSON'Red X3 MRNA PCP FROM [facility] [address] [facility] WILL TRANSPORT HOME D/C PLAN: HOME SELF-CARE
--- NOTE | 2021-10-30 10:35 | PHA.MEDREC ---
Addendum entered by Kirill Millard 10/30/21 10:41: Patient reports taking a medication for bladder, but cannot recall the name. Patient was seen by Dr. Willis (10/29/21) and terazosin 5 mg was recently added to patient's med list. Flomax from prior fill was only 10 day supply per claim history from 09/28/21. Original Note: Pharmacy Consult ? Medication Reconciliation Pharmacy has completed the medication reconciliation. Patient able to confirm medications. Cross-referenced with claim history to verify meds.
[2021-10-30 11:36] LABS: Glucose, Whole Blood 176 mg/dL (60-115)
[2021-10-30 12:05] VITALS: BP 151/70; PULSE 90; RESP 16; O2SAT 97
--- NOTE | 2021-10-30 12:47 | PM.EVENT ---
Event Note Date of Service: 10/30/21 Event Note: day hospitalist update S bladder and flank discomfort resolved no fever/chills no N/V O BP 151/70, P 90, R 16, SaO2 97 on RA gen- NAD lungs- CTAB CV- RRR no m/r/g abd- soft/NT - Myles draining clear urine ext- no C/C/E labs- WBC 15.7, 82% PMNs, SCr 1.06 A/P 71yo M with DM2, BPH, nephrolithiasis presenting with urinary retention, found to have hydronephrosis + acute pyelonephritis # sepsis due to pyelonephritis - ceftriaxone d#1, follow BCx/UCx # urinary retention - Myles, alpha-lillei, Urology consult # DM2 - correction-dose lispro # VTE ppx: LMWH In my clinical judgment, the patient requires continued hospitalization for the following reasons: IV ABX
[2021-10-30 17:23] LABS: COVID-19 Test Negative (Negative); IDNOW Serial# 16C4AD1C
[2021-10-30 20:05] LABS: Glucose, Whole Blood 156 mg/dL (60-115)
--- NOTE | 2021-10-30 20:38 | PC.NURSE ---
Nurse to nurse report given to AURORA Hyman RN, patient is ready for transport to floor, bed 384.
[2021-10-30 21:38] LABS: Glucose, Whole Blood 275 mg/dL (60-115)
[2021-10-30] MEDS: Albuterol Sulfate 90 MCG 8 GM INHALER 2 PUFF INHALE (22:16)
[2021-10-30 22:19] VITALS: PULSE 92; RESP 16; O2SAT 98
[2021-10-30 23:31] VITALS: BP 134/61; PULSE 83; RESP 16; TEMP 36.6; O2SAT 98
[2021-10-31] MEDS: Lactated Ringers 1,000 ML 100 ML IVCONT ×3 (00:17→20:59)
[2021-10-31] MEDS: cefTRIAXone sodium 1 GM in 0.9 % Sodium Chloride 50 ML IV ×2 (00:17→23:17)
[2021-10-31 03:31] VITALS: BP 155/72; PULSE 83; RESP 16; TEMP 36.4; O2SAT 94
[2021-10-31] MEDS: Heparin Sodium,Porcine 5,000 UNIT/ML VIAL 5000 UNIT SUBCUT ×3 (04:54→20:59)
[2021-10-31 06:01] LABS: Hematocrit 40.7 % (42.0-52.0); Hemoglobin 13.6 g/dl (14.0-18.0); Mean Corpuscular HGB Conc 33.4 g/dl (31.0-36.0); Mean Corpuscular Volume 89.6 fL (80.0-98.0); Mean Platelet Volume 9.6 fL (9.4-12.4); Platelet Count 300 X10*3/uL (160-400); Red Blood Count 4.54 X10*6/uL (4.60-5.80); Red Cell Distribution Width 13.1 % (11.0-16.0)
[2021-10-31 06:30] LABS: Anion Gap 15 (12-20); Blood Urea Nitrogen 11 mg/dL (9-16); Calcium 8.9 mg/dL (8.4-10.2); Carbon Dioxide 25 mmol/L (22-29); Chloride 107 mmol/L (96-108); Creatinine Clr Calc Pharmacy 134.1; Estimated Glomerular Filt Rate > 60; Glucose Random 145 mg/dL (60-115); Potassium 4.1 mmol/L (3.3-5.1); Sodium 143 mmol/L (135-145)
[2021-10-31 07:34] LABS: Glucose, Whole Blood 169 mg/dL (60-115)
[2021-10-31 08:00] VITALS: BP 163/76; PULSE 88; RESP 17; TEMP 35.8; O2SAT 97
[2021-10-31] MEDS: Doxazosin Mesylate 2 MG TABLET 4 MG PO (08:59)
[2021-10-31] MEDS: buPROPion HCl XL 300 MG TAB.ER.24H PO (08:59)
[2021-10-31] MEDS: Insulin Lispro 100 UNIT/ML 3 ML VIAL SUBCUT ×4 (09:01→20:58)
--- NOTE | 2021-10-31 10:42 | P.PNIM_ITS ---
Subjective Subjective Date of Service: 10/31/21 Interval History: no urinary discomfort no bladder or flank pain c/o SESAY Review of Systems Review of Systems: Yes all other systems are reviewed and are negative Physical Exam Vital Signs: Vital Signs: Last Vital Signs Temp 96.4 F L 10/31/21 08:00 Pulse 88 10/31/21 08:00 Resp 17 10/31/21 08:00 BP 163/76 H 10/31/21 08:00 Pulse Ox 97 10/31/21 08:00 O2 Del Method 10/31/21 08:00 BMI result Body Mass Index 30.8 Gen: in no acute distress HEENT: sclera anicteric, moist mucus membranes Neck: supple Lungs: clear to auscultation bilaterally Heart: regular rate and rhythm, no murmurs Abd: soft, non-tender, non-distended : no CVA tenderness; Myles draining clear yellow urine Ext: no edema Skin: warm/well-perfused Neuro: alert and oriented x3, no focal findings Psych: appropriate affect Objective Data Active Medications Acetaminophen (Acetaminophen 325 Mg Tablet) 650 mg PO Q6H PRN PRN Reason: Pain, Mild (Pain Scale 1-3) Albuterol Sulfate (Albuterol Sulfate 90 Mcg 8 Gm Inhaler) 2 puff INHALE Q6H PRN PRN Reason: for wheezing Last Admin: 10/30/21 22:16 Dose: 2 puff Documented By: MRAK Bupropion HCl (Bupropion Hcl Xl 300 Mg Tab.Er.24h) 300 mg PO DAILY [facility] Last Admin: 10/31/21 08:59 Dose: 300 mg Documented By: MARIA G Dextrose (Dextrose 50 % 25 Gm/50 Ml Syringe) 25 gm IVPUSH Q15M PRN; Protocol PRN Reason: per Hypoglycemia Standing Ord. Docusate Sodium (Docusate Sodium 100 Mg Capsule) 100 mg PO DAILY PRN PRN Reason: Constipation Doxazosin Mesylate (Doxazosin Mesylate 2 Mg Tablet) 4 mg PO DAILY [facility] Last Admin: 10/31/21 08:59 Dose: 4 mg Documented By: MARIA G Glucose (Glucose Gel 15 Gm Gel..Gram.) 15 gm PO Q15M PRN; Protocol PRN Reason: per Hypoglycemia Standing Ord. Heparin Sodium (Porcine) (Heparin Sodium,Porcine 5,000 Unit/Ml Vial) 5,000 unit SUBCUT Q8H [facility] Last Admin: 10/31/21 04:54 Dose: 5,000 unit Documented By: JOYA Ceftriaxone Sodium 1 gm/ (Sodium Chloride) 50 mls @ 100 mls/hr IV Q24H [facility] Last Infusion: 10/31/21 00:52 Dose: 0 mls/hr Documented By: JOYA Lactated Ringer's (Lr) 1,000 mls @ 100 mls/hr IVCONT .Q10H [facility] Last Admin: 10/31/21 09:22 Dose: 100 mls/hr Documented By: MARIA G Insulin Human Lispro (Insulin Lispro 100 Unit/Ml 3 Ml Vial) 0 unit SUBCUT QIDACHS [facility]; Protocol Last Admin: 10/31/21 09:01 Dose: 2 unit Documented By: MARIA G Ondansetron HCl (Ondansetron Hcl 4 Mg/2 Ml Vial) 4 mg IVPUSH Q8H PRN PRN Reason: Nausea and Vomiting Sodium Chloride (0.9 % Sodium Chloride Flush 3 Ml Syringe) 3 ml IVFLUSH QSHIFT [facility] Last Admin: 10/31/21 09:03 Dose: Not Given Documented By: MARIA G Non-Admin Reason: IV Running Labs CBC & Chem 7: 10/31/21 05:01 10/31/21 05:01 Labs: Laboratory Results - last 24 hr 10/30/21 10/30/21 10/30/21 11:31 17:01 19:24 MCV MCH MCHC RDW Plt Count MPV Absolute Nucleated RBC Nucleated RBC % (auto) Anion Gap Estim Creat Clear Calc Estimated GFR POC Glucose 176 H 156 H Random Glucose Calcium COVID-19 (KATIE) Negative COVID-19 Clin Com See Note 10/30/21 10/31/21 10/31/21 21:19 05:01 05:01 MCV 89.6 MCH 30.0 MCHC 33.4 RDW 13.1 Plt Count 300 MPV 9.6 Absolute Nucleated RBC 0.000 Nucleated RBC % (auto) 0.0 Anion Gap 15 Estim Creat Clear Calc 134.1 Estimated GFR > 60 POC Glucose 275 H Random Glucose 145 H D Calcium 8.9 COVID-19 (KATIE) COVID-19 Clin Com 10/31/21 07:27 MCV MCH MCHC RDW Plt Count MPV Absolute Nucleated RBC Nucleated RBC % (auto) Anion Gap Estim Creat Clear Calc Estimated GFR POC Glucose 169 H Random Glucose Calcium COVID-19 (KATIE) COVID-19 Clin Com Microbiology Microbiology Results: Microbiology 10/30/21 03:41 Blood Culture - Preliminary Blood - Venous No growth after 24 hours. 10/30/21 01:27 Blood Culture - Preliminary Blood - Venous No growth after 24 hours. Assessment and Plan (1) Hydronephrosis: Status: Acute (2) UTI (urinary tract infection): Status: Acute Plan hospital d#2 71yo M with DM2, BPH, nephrolithiasis presenting with urinary retention, found to have hydronephrosis + acute pyelonephritis # sepsis due to pyelonephritis - ceftriaxone d#2, follow BCx/UCx # urinary retention with hydronephrosis - Myles, alpha-lillie, Urology consult pending, check renal US to see if hydronephrosis resolved # tobacco abuse - start NRT # DM2 - correction-dose lispro # VTE ppx: LMWH In my clinical judgment, the patient requires continued hospitalization for the following reasons: IV ABX Quality Stroke Does the patient have a stroke diagnosis?: No VTE Prior VTE?: No VTE Risk Level:: Medical - moderate - high VTE Device Contraindication: Treatment Not Indicated VTE Drug Contraindication: N/A - Med Ordered
[2021-10-31 11:17] VITALS: BP 136/67; PULSE 93; RESP 17; TEMP 35.9; O2SAT 95
[2021-10-31 11:33] LABS: Glucose, Whole Blood 203 mg/dL (60-115)
[2021-10-31] MEDS: Nicotine 7 MG PATCH.TD24 TRANSDERMA (12:16)
[2021-10-31 15:21] VITALS: BP 132/65; PULSE 107; RESP 18; TEMP 37.2; O2SAT 96
[2021-10-31 16:19] LABS: Glucose, Whole Blood 231 mg/dL (60-115)
[2021-10-31 19:15] VITALS: BP 134/57; PULSE 95; RESP 16; TEMP 37.2; O2SAT 94
[2021-10-31 20:23] LABS: Glucose, Whole Blood 273 mg/dL (60-115)
[2021-10-31 23:30] VITALS: BP 142/73; PULSE 82; RESP 16; TEMP 36.1; O2SAT 96
[2021-11-01] MEDS: Heparin Sodium,Porcine 5,000 UNIT/ML VIAL 5000 UNIT SUBCUT ×3 (02:36→21:07)
[2021-11-01] MEDS: Ibuprofen 400 MG TABLET PO ×2 (02:39→08:38)
[2021-11-01 03:27] LABS: Glucose, Whole Blood 148 mg/dL (60-115)
[2021-11-01 03:47] VITALS: BP 132/65; PULSE 88; RESP 16; TEMP 36.1; O2SAT 97
[2021-11-01 07:49] VITALS: BP 145/66; PULSE 82; RESP 19; TEMP 32.2; O2SAT 97
[2021-11-01 08:08] LABS: Glucose, Whole Blood 160 mg/dL (60-115)
[2021-11-01] MEDS: Insulin Lispro 100 UNIT/ML 3 ML VIAL SUBCUT ×4 (08:21→21:08)
[2021-11-01] MEDS: Doxazosin Mesylate 2 MG TABLET 4 MG PO (08:22)
[2021-11-01] MEDS: buPROPion HCl XL 300 MG TAB.ER.24H PO (08:22)
[2021-11-01] MEDS: Nicotine 7 MG PATCH.TD24 TRANSDERMA (08:22)
[2021-11-01] MEDS: 0.9 % Sodium Chloride Flush 3 ML SYRINGE IVFLUSH ×3 (08:22→21:08)
--- NOTE | 2021-11-01 09:49 | P.PNIM_ITS ---
Subjective Subjective Date of Service: 11/01/21 Interval History: c/o occipital SESAY [chronic since childhood due to head trauma] no fever/chills Myles draining no urinary discomfort Review of Systems Review of Systems: Yes all other systems are reviewed and are negative Physical Exam Vital Signs: Vital Signs: Last Vital Signs Temp 90.0 F L 11/01/21 07:49 Pulse 82 11/01/21 07:49 Resp 19 11/01/21 07:49 BP 145/66 H 11/01/21 07:49 Pulse Ox 97 11/01/21 07:49 O2 Del Method 11/01/21 07:49 BMI result Body Mass Index 30.8 Gen: in no acute distress HEENT: sclera anicteric, moist mucus membranes Neck: supple Lungs: clear to auscultation bilaterally Heart: regular rate and rhythm, no murmurs Abd: soft, non-tender, non-distended : no CVA tenderness; Myles draining clear yellow urine Ext: no edema Skin: warm/well-perfused Neuro: alert and oriented x3, no focal findings Psych: appropriate affect Objective Data Active Medications Acetaminophen (Acetaminophen 325 Mg Tablet) 650 mg PO Q6H PRN PRN Reason: Pain, Mild (Pain Scale 1-3) Albuterol Sulfate (Albuterol Sulfate 90 Mcg 8 Gm Inhaler) 2 puff INHALE Q6H PRN PRN Reason: for wheezing Last Admin: 10/30/21 22:16 Dose: 2 puff Documented By: MARK Bupropion HCl (Bupropion Hcl Xl 300 Mg Tab.Er.24h) 300 mg PO DAILY [facility] Last Admin: 11/01/21 08:22 Dose: 300 mg Documented By: ANA M Dextrose (Dextrose 50 % 25 Gm/50 Ml Syringe) 25 gm IVPUSH Q15M PRN; Protocol PRN Reason: per Hypoglycemia Standing Ord. Docusate Sodium (Docusate Sodium 100 Mg Capsule) 100 mg PO DAILY PRN PRN Reason: Constipation Doxazosin Mesylate (Doxazosin Mesylate 2 Mg Tablet) 4 mg PO DAILY [facility] Last Admin: 11/01/21 08:22 Dose: 4 mg Documented By: ANA M Glucose (Glucose Gel 15 Gm Gel..Gram.) 15 gm PO Q15M PRN; Protocol PRN Reason: per Hypoglycemia Standing Ord. Heparin Sodium (Porcine) (Heparin Sodium,Porcine 5,000 Unit/Ml Vial) 5,000 unit SUBCUT Q8H [facility] Last Admin: 11/01/21 02:36 Dose: 5,000 unit Documented By: JOYA Ceftriaxone Sodium 1 gm/ (Sodium Chloride) 50 mls @ 100 mls/hr IV Q24H [facility] Last Infusion: 11/01/21 01:08 Dose: 0 mls/hr Documented By: ROBERTO Ibuprofen (Ibuprofen 400 Mg Tablet) 400 mg PO Q6H PRN PRN Reason: headace Last Admin: 11/01/21 08:38 Dose: 400 mg Documented By: ANA M Insulin Human Lispro (Insulin Lispro 100 Unit/Ml 3 Ml Vial) 0 unit SUBCUT QIDACHS [facility]; Protocol Last Admin: 11/01/21 08:21 Dose: 2 unit Documented By: ANA M Nicotine (Nicotine 7 Mg Patch.Td24) 7 mg TRANSDERMA DAILY [facility] Last Admin: 11/01/21 08:22 Dose: 7 mg Documented By: ANA M Ondansetron HCl (Ondansetron Hcl 4 Mg/2 Ml Vial) 4 mg IVPUSH Q8H PRN PRN Reason: Nausea and Vomiting Sodium Chloride (0.9 % Sodium Chloride Flush 3 Ml Syringe) 3 ml IVFLUSH QSHIFT [facility] Last Admin: 11/01/21 08:22 Dose: 3 ml Documented By: ANA M Labs CBC & Chem 7: 10/31/21 05:01 10/31/21 05:01 Labs: Laboratory Results - last 24 hr 10/31/21 10/31/21 10/31/21 11:23 16:08 19:17 POC Glucose 203 H 231 H 273 H 11/01/21 11/01/21 03:18 07:51 POC Glucose 148 H 160 H Impressions Renal Ultrasound 10/31/21 09:00 IMPRESSION: -No hydronephrosis of either kidney. -Cholelithiasis.. Microbiology Microbiology Results: Microbiology 10/30/21 03:42 Urine Culture - Final Urine clean catch - Urine khan top Enterobacter cloacae complex 10/30/21 03:41 Blood Culture - Preliminary Blood - Venous No growth after 48 hours. 10/30/21 01:27 Blood Culture - Preliminary Blood - Venous No growth after 48 hours. 10/30/21 11:09 Urine Culture - Final Urine Catheterized - Myles Catheter Assessment and Plan (1) Hydronephrosis: Status: Acute (2) UTI (urinary tract infection): Status: Acute Plan hospital d#3 71yo M with DM2, BPH, nephrolithiasis presenting with urinary retention, found to have hydronephrosis + acute pyelonephritis # sepsis due to pyelonephritis - ceftriaxone d#3, BCx negative to date, UCx growing GNRs, follow up speciation/susceptibilities # urinary retention with hydronephrosis - Myles, alpha-lillie, Urology consult pending, hydronephrosis reviewed on US # tobacco abuse - NRT # DM2 - correction-dose lispro # VTE ppx: LMWH In my clinical judgment, the patient requires continued hospitalization for the following reasons: IV ABX Quality Stroke Does the patient have a stroke diagnosis?: No VTE Prior VTE?: No VTE Risk Level:: Medical - moderate - high VTE Device Contraindication: Treatment Not Indicated VTE Drug Contraindication: N/A - Med Ordered
[2021-11-01 10:45] VITALS: BP 148/65; PULSE 109; RESP 18; TEMP 36.6; O2SAT 95
[2021-11-01 10:53] LABS: Glucose, Whole Blood 189 mg/dL (60-115)
[2021-11-01 15:30] VITALS: BP 141/68; PULSE 85; RESP 17; TEMP 36.4; O2SAT 96
[2021-11-01 15:57] LABS: Glucose, Whole Blood 261 mg/dL (60-115)
--- NOTE | 2021-11-01 16:20 | PM.UROCN ---
History of Present Illness Consult details Consult date: 10/31/21 Narrative: Consulting complaint : urinary retention with pyelonephritis 71-year-old male. Had presented late September with urinary retention to the emergency room. Had been started on alpha-lillie. 2 days ago had attended urology office for voiding trial Failed voiding trial Recommendation had been to replace catheter Patient had refused Subsequently presented to emergency room with urinary retention Background of poorly controlled diabetes last HbA1c 08/26 over 10, blood sugars in hospital running in the high 100s to 200s Microbiology Entrobacter pansensitive Imaging with CT scan showing bladder wall thickening in bilateral hydronephrosis Repeat ultrasound after catheter for 48 hours shows resolution of bilateral hydronephrosis Assessment is marked bladder outlet obstruction with incomplete bladder emptying and subsequent bilateral hydronephrosis - 1400cc at catheter placement Creatinine initial 1.2 dropped to 0.7 with catheter Antibiotics for 14 days Catheter should remain and should be switched to catheter cap Review of Systems Constitutional: Constitutional: Reports as per HPI and Reports no additional constitutional complaints Cardiovascular: Cardiovascular: Reports as per HPI and Reports no additional cardiovascular complaints Respiratory: Respiratory: Reports as per HPI and Reports no additional respiratory complaints Gastrointestinal: Gastrointestinal: Reports as per HPI and Reports no additional gastrointestinal complaints Genitourinary: Genitourinary: Reports as per HPI Musculoskeletal: Musculoskeletal: Reports no additional musculoskeletal complaints and Reports as per HPI Neurologic: Reports system reviewed and no additional complaints, except as documented and Reports as per HPI PMFSH Past Medical History Medical History Endogenous depression Urinary incontinence Family History Family History Other Mental health disorder Surgical History Surgical History History of back surgery History of toe surgery Social History Social History Household Members: Spouse and Other Household Members Other:: pets Housing: House Do you presently have visiting nurse or other home services: No Alcohol intake: never Patient Tobacco Use Status: Current everyday Tobacco user Tobacco use type: Cigarette Cigarette Packs Per Day: 0.5 Cigarettes Per Day: 10 e-Cigarette/Vaping Use: Never Used Second Hand Smoke Exposure: No service: No Current occupational status: retired and disabled Current occupational exposures/hazards: No Cognitive needs: Yes (cane) Hearing needs: No Vision needs: Yes (reading glasses) Meds Allergies Allergy/AdvReac Type Severity Reaction Status Date / Time acetaminophen [Tylenol] Allergy Unknown stomach Verified 08/13/21 13:50 upset Active Medications: Current Medications Acetaminophen (Acetaminophen 325 Mg Tablet) 650 mg PO Q6H PRN PRN Reason: Pain, Mild (Pain Scale 1-3) Albuterol Sulfate (Albuterol Sulfate 90 Mcg 8 Gm Inhaler) 2 puff INHALE Q6H PRN PRN Reason: for wheezing Last Admin: 10/30/21 22:16 Dose: 2 puff Bupropion HCl (Bupropion Hcl Xl 300 Mg Tab.Er.24h) 300 mg PO DAILY [facility] Last Admin: 11/01/21 08:22 Dose: 300 mg Dextrose (Dextrose 50 % 25 Gm/50 Ml Syringe) 25 gm IVPUSH Q15M PRN; Protocol PRN Reason: per Hypoglycemia Standing Ord. Docusate Sodium (Docusate Sodium 100 Mg Capsule) 100 mg PO DAILY PRN PRN Reason: Constipation Doxazosin Mesylate (Doxazosin Mesylate 2 Mg Tablet) 4 mg PO DAILY [facility] Last Admin: 11/01/21 08:22 Dose: 4 mg Finasteride (Finasteride 5 Mg Tablet) 5 mg PO DAILY [facility] Glucose (Glucose Gel 15 Gm Gel..Gram.) 15 gm PO Q15M PRN; Protocol PRN Reason: per Hypoglycemia Standing Ord. Heparin Sodium (Porcine) (Heparin Sodium,Porcine 5,000 Unit/Ml Vial) 5,000 unit SUBCUT Q8H [facility] Last Admin: 11/01/21 12:14 Dose: 5,000 unit Ceftriaxone Sodium 1 gm/ (Sodium Chloride) 50 mls @ 100 mls/hr IV Q24H [facility] Last Infusion: 11/01/21 01:08 Dose: Infused Ibuprofen (Ibuprofen 400 Mg Tablet) 400 mg PO Q6H PRN PRN Reason: headace Last Admin: 11/01/21 08:38 Dose: 400 mg Insulin Human Lispro (Insulin Lispro 100 Unit/Ml 3 Ml Vial) 0 unit SUBCUT QIDACHS [facility]; Protocol Last Admin: 11/01/21 12:13 Dose: 2 unit Loperamide HCl (Loperamide Hcl 2 Mg Capsule) 2 mg PO Q4H PRN PRN Reason: diarrhea Nicotine (Nicotine 7 Mg Patch.Td24) 7 mg TRANSDERMA DAILY [facility] Last Admin: 11/01/21 08:22 Dose: 7 mg Ondansetron HCl (Ondansetron Hcl 4 Mg/2 Ml Vial) 4 mg IVPUSH Q8H PRN PRN Reason: Nausea and Vomiting Sodium Chloride (0.9 % Sodium Chloride Flush 3 Ml Syringe) 3 ml IVFLUSH QSHIFT [facility] Last Admin: 11/01/21 08:22 Dose: 3 ml Home Medications Medication Instructions Recorded Confirmed Last Taken Type terazosin 5 mg capsule 5 mg PO DAILY 10/30/21 10/30/21 10/29/21 History Physical Exam Vital Signs: Vital Signs: Last Vital Signs Temp 97.6 F 11/01/21 15:30 Pulse 85 11/01/21 15:30 Resp 17 11/01/21 15:30 BP 141/68 H 11/01/21 15:30 Pulse Ox 96 11/01/21 15:30 O2 Del Method 11/01/21 15:30 BMI result Body Mass Index 30.8 Const: General: cooperative, healthy appearing, comfortable and no acute distress Orientation/consciousness: patient oriented x3 HEENT: Face and sinus: Yes normal facial exam Mouth: moist mucous membranes Neck: Neck: Yes normal visual inspection, Yes full ROM and Yes trachea midline Chest: Chest palpation & inspection: normal inspection of the chest Resp: Effort & Inspection: normal respiratory effort, able to speak in complete sentences and no respiratory distress GI: Inspection: Yes normal to inspection Back/Spine/Pelvis: Cervical Spine: normal cervical lordosis Thoracic/Lumbar Spine: thoracic and lumbar spine normal to inspection Skin: General skin exam: no rashes or lesions noted Neuro: General: patient oriented x3, tone normal and moves all extremities Extrem: General: Yes normal to inspection and Yes capillary refill normal Results Labs Result diagrams: 10/31/21 05:01 10/31/21 05:01 Labs: Abnormal lab results 10/31/21 11/01/21 11/01/21 Range/Units 19:17 03:18 07:51 POC Glucose 273 H 148 H 160 H (60-115) mg/dL 11/01/21 11/01/21 Range/Units 10:48 15:32 POC Glucose 189 H 261 H (60-115) mg/dL Urine 10/29/21 Range/Units 23:52 Urine Color Yellow Urine Appearance Clear Urine pH 5.5 (5.0-8.0) Ur Specific Mereta 1.010 (1.005-1.025) Urine Protein Trace (Neg-Trace) mg/dL Urine Glucose (UA) Negative (Negative) mg/dL All other labs normal. Assessment and Plan (1) Hydronephrosis: Status: Acute (2) Acute pyelonephritis: Status: Acute (3) Urinary retention: Status: Acute Plan 14 days antibiotics Catheter cap Procedures Date of Service Date of Service: 11/01/21
[2021-11-01] MEDS: Finasteride 5 MG TABLET PO (17:03)
[2021-11-01 17:38] LABS: Cholesterol 191 mg/dL; HDL Cholesterol 34 mg/dL; LDL Cholesterol Calculated 132 mg/dl; Triglycerides 125 mg/dL
[2021-11-01 20:00] VITALS: BP 156/73; PULSE 88; RESP 19; TEMP 36.1; O2SAT 96
[2021-11-01 20:44] LABS: Glucose, Whole Blood 246 mg/dL (60-115)
[2021-11-01] MEDS: traZODone HCL 50 MG TABLET PO (21:54)
[2021-11-01 23:05] LABS: Reflex LDLD? No
[2021-11-01 23:38] VITALS: BP 159/75; PULSE 79; RESP 17; TEMP 36.4; O2SAT 95
[2021-11-02] MEDS: cefTRIAXone sodium 1 GM in 0.9 % Sodium Chloride 50 ML IV (00:28)
[2021-11-02 04:00] VITALS: BP 155/76; PULSE 88; RESP 17; TEMP 36.6; O2SAT 94
[2021-11-02] MEDS: Heparin Sodium,Porcine 5,000 UNIT/ML VIAL 5000 UNIT SUBCUT ×2 (05:17→11:48)
[2021-11-02] MEDS: Albuterol Sulfate 90 MCG 8 GM INHALER 2 PUFF INHALE (07:24)
[2021-11-02] MEDS: 0.9 % Sodium Chloride Flush 3 ML SYRINGE IVFLUSH (07:24)
[2021-11-02 07:36] LABS: Glucose, Whole Blood 191 mg/dL (60-115)
[2021-11-02] MEDS: Ibuprofen 400 MG TABLET PO (07:58)
[2021-11-02] MEDS: Insulin Lispro 100 UNIT/ML 3 ML VIAL SUBCUT ×2 (07:58→11:47)
[2021-11-02] MEDS: Finasteride 5 MG TABLET PO (07:58)
[2021-11-02] MEDS: Doxazosin Mesylate 2 MG TABLET 4 MG PO (07:59)
[2021-11-02] MEDS: Nicotine 7 MG PATCH.TD24 TRANSDERMA (07:59)
[2021-11-02] MEDS: buPROPion HCl XL 300 MG TAB.ER.24H PO (07:59)
[2021-11-02 08:00] VITALS: BP 152/67; PULSE 83; RESP 18; TEMP 36.2; O2SAT 95
[2021-11-02 11:36] LABS: Glucose, Whole Blood 229 mg/dL (60-115)
--- NOTE | 2021-11-02 11:36 | PM.DS ---
DS: Providers Provider Date of Service: 11/02/21 Date of admission: 10/30/21 03:44 Primary care physician: Unknown Physician Consults: 10/30/21 05:57 Consult to Urology Routine Consulting Provider: Idris Willis Reason for consultation: Urinary retention, pyelo, DS: Diagnosis Discharge Diagnosis (1) Hydronephrosis: Status: Acute (2) Acute pyelonephritis: Status: Acute (3) Urinary retention: Status: Acute DS: Summary Hospital Course Hospital Course: Chief Complaint:? difficulty? urinating ?71-year-old male? with past medical history of type 2 diabetes, urinary incontinence who presents to the hospital with complaints of urinary retention.? Patient reports that he has been having urinary frequency and dysuria for couple of weeks now, he was having frequent urinary symptoms but starting yesterday patient had difficulty urinating? and was now experiencing urinary retention.? He is all clear complaining of bilateral flank pain radiating to the groin, patient denies any fever or chills, he reportedly had stent in place? that were removed ? On day of presentation.? No note from outside urology in system.? Patient also had an appointment with Dr. graham a.[email or web address] but could not wait due to the? pain occurred he denies any fever or chills, no nausea vomiting, no diarrhea or constipation at this time, and no lower extremity edema, no chest pain, shortness of breath. On arrival to the ED patient has a temp of 99.3, heart rate of 119, slightly elevated blood pressure Satting 95% on room air Labs are significant for? WBC count of 18, UA that is positive for large leukocyte Estrace, WBC as well as blood and RBC Abdominal CT shows evidence of cystitis with no evidence of kidney stones. hospital course 71yo M with DM2, BPH, nephrolithiasis presenting with urinary retention, found to have hydronephrosis + sepsis due to acute pyelonephritis, patient with recent history of urinary retention, Myles catheter was removed couple days prior to presentation patient failed voiding trial Myles catheter was recommended however patient refused, therefore Myles catheter was inserted in the emergency room 1400 cc urine was drained patient treated with IV ceftriaxone blood cultures came back negative urine culture grew Enterobacter cloacae sensitive to ceftriaxone therefore patient is being discharged home on Ceftin for total 14 day treatment patient evaluated by Dr. Willis and he recommend to change Myles to catheter cap he will be continued on terazosin and finasteride and recommended outpatient follow-up with Urology in regard to tobacco abuse he is being discharged home on nicotine patch counseling done. Diabetes mellitus type 2 poorly controlled with an elevated hemoglobin A1c of 10.4 recommended to continue metformin and strict diabetic diet, advised to follow-up with PCP for medication adjustment. Time Spent with Patient Time attestation: Total time spent providing and/or coordinating discharge services: Discharge coordination time: Greater than 30 minutes Quality: Safe Use of Opioids Does Pt have an Active Cancer Diagnosis on the Problem List?: No Quality: Stroke Does the patient have a stroke diagnosis?: No Physical Exam Vital Signs: Vital Signs: Last Vital Signs Temp 97.2 F 11/02/21 08:00 Pulse 83 11/02/21 08:00 Resp 18 11/02/21 08:00 BP 152/67 H 11/02/21 08:00 Pulse Ox 95 11/02/21 08:00 O2 Del Method 11/02/21 08:00 BMI result Body Mass Index 30.8 Const: Other: Gen: in no acute distress Neck: supple, no JVD Lungs: clear to auscultation bilaterally Heart: regular rate and rhythm, no murmurs Abd: soft, non-tender, non-distended : no CVA tenderness; Myles capped Ext: no edema Skin: warm/well-perfused Neuro: alert and oriented x3, no focal findings Psych: appropriate affect DS: Data Data Completed and Pending Labs on day of discharge: Laboratory Results - last 24 hr 10/31/21 11/01/21 11/01/21 05:01 15:32 20:40 POC Glucose 261 H 246 H Triglycerides 125 Cholesterol 191 LDL Cholesterol, Calc 132 HDL Cholesterol 34 D 11/02/21 11/02/21 07:22 11:23 POC Glucose 191 H 229 H Triglycerides Cholesterol LDL Cholesterol, Calc HDL Cholesterol Preliminary micro results at discharge 10/30/21 03:41 Blood Culture - Preliminary Blood - Venous No growth after 48 hours. 10/30/21 01:27 Blood Culture - Preliminary Blood - Venous No growth after 48 hours. Discharge Plan Discharge Patient Disposition: Home, Self-Care Discharge Diagnosis: sepsis due to acute pyelonephritis urinary retention with hydronephrosis diabetes mellitus type 2 Referrals: Physician,Unknown J [Primary Care Provider] - 1 Week Discharge Medications: New finasteride [Proscar] 5 mg Tablet 5 mg PO DAILY Qty: 30 0RF nicotine 7 mg/24 hr Patch 24 Hour 7 mg transdermal DAILY Qty: 30 0RF cefuroxime axetil 250 mg tablet 250 mg PO BID 10 Days Qty: 20 0RF Continued albuterol sulfate 90 mcg/actuation HFA aerosol inhaler 2 puff PO Q6H PRN (Reason: for wheezing) Qty: 17 1RF (DME) ReliOn Prime Test Strips Strip See Rx Instructions miscellaneous .MEDSUPPLY Qty: 50 0RF Rx Instructions: check bs 1-2/day bupropion HCl 300 mg tablet extended release 24 hr 300 mg PO DAILY Qty: 90 1RF (DME) lancets 26 gauge misc See Rx Instructions miscellaneous .MEDSUPPLY Qty: 100 0RF Rx Instructions: check BS 1-2x/day metformin 500 mg tablet 500 mg PO BID Qty: 180 1RF terazosin 5 mg capsule 5 mg PO DAILY (DME) blood-glucose meter [Blood Glucose Monitoring] Kit See Rx Instructions miscellaneous .MEDSUPPLY Qty: 1 0RF Rx Instructions: As directed Discharge Orders: Discharge Order (Routine); Ordered 11/02/21 Ordered By: Nereyda Aguila Diet: Diabetic diet Activity on Discharge: As tolerated Stand Alone Forms: Patient Portal Discharge page Care Plan Goals: take a antibiotic for 10 more days continue Myles catheter with cap outpatient follow-up with Dr. Idris Willis call to make appointment Health Concerns: follow strict diabetic diet continue metformin follow up with PCP to adjust diabetic medication Plan of Treatment: outpatient follow-up with Dr. Willis call appointment continue catheter with cap Assessment: as per discharge summary
[2021-11-02 11:44] VITALS: BP 136/81; PULSE 80; RESP 17; TEMP 36.1; O2SAT 96
--- NOTE | 2021-11-02 11:46 | MHC.CM.PN ---
PATIENT DENIES NEED FOR [facility] SERVICES FEELS HE WILL DO FINE WITH SPOUSE WHO WORKS FROM HOME. PLAN IS DC HOME VIA TRANSPORT AFTER WORK (1600)
== END 2021-11-02 14:32 | disposition home or self-care (01) | DRG 463 ==
LOC: HO.ED 10-30 01:35 → HO.EDOVER 10-30 03:49 → HO.S3 10-30 19:36
PROVIDERS: Family Medicine; Admitting Provider Internal Medicine; Emergency Provider Emergency Medicine; PCP Internal Medicine; Visit Provider Hospitalist
DX: N13.6 Pyonephrosis (principal); F33.2 Major depressive disorder, recurrent severe without psychotic features; N40.1 Benign prostatic hyperplasia with lower urinary tract symptoms; R33.8 Other retention of urine; E11.9 Type 2 diabetes mellitus without complications; F17.210 Nicotine dependence, cigarettes, uncomplicated; Z71.6 Tobacco abuse counseling; Z20.822 Contact with and (suspected) exposure to COVID-19; Z88.6 Allergy status to analgesic agent; Z79.84 Long term (current) use of oral hypoglycemic drugs; Z79.899 Other long term (current) drug therapy
CPT/HCPCS: 36415; 51798; 74176; 76775; 80048; 80053; 80061; 81001; 82947; 83605; 83690; 85025; 85027; 87040; 87086; 87088; 87186; 87635; 94640; 96365; 96366; 96375; 99285; C1758; J0696; J2543

== ENCOUNTER → 2021-11-24 09:13 | Outpatient (BNVA) | payer OTHER, SELFPAY | PROVIDERS: PCP Internal Medicine; Visit Provider Urology | DX: R33.9 Retention of urine, unspecified (principal) | CPT/HCPCS: 51702 ==

== ENCOUNTER → 2022-01-22 13:44 | Outpatient (BNVA) | payer OTHER, SELFPAY | PROVIDERS: PCP Internal Medicine; Visit Provider Urology | DX: R33.9 Retention of urine, unspecified (principal); N39.0 Urinary tract infection, site not specified | CPT/HCPCS: 52000 ==

== ENCOUNTER → 2022-02-22 13:55 | Outpatient (BNVA) | payer OTHER, SELFPAY | PROVIDERS: PCP Internal Medicine; Visit Provider Urology | DX: R33.9 Retention of urine, unspecified (principal) | CPT/HCPCS: 51702 ==

== ENCOUNTER 2022-03-22 14:10 | Outpatient (REF) | payer OTHER, SELFPAY | END 2022-03-22 14:11 | disposition home or self-care (01) | LOC: HO.LAB 14:10 | PROVIDERS: PCP Internal Medicine; Visit Provider Urology | DX: N39.0 Urinary tract infection, site not specified (principal) | CPT/HCPCS: 51702; 87086; 87088; 87186 ==

== ENCOUNTER → 2022-04-21 13:46 | Outpatient (BNVA) | payer OTHER, SELFPAY | PROVIDERS: PCP Internal Medicine; Visit Provider Urology | DX: R33.9 Retention of urine, unspecified (principal) | CPT/HCPCS: 51702 ==

== ENCOUNTER → 2022-05-24 13:44 | Outpatient (BNVA) | payer OTHER, SELFPAY | PROVIDERS: PCP Internal Medicine; Visit Provider Urology | DX: R33.9 Retention of urine, unspecified (principal) | CPT/HCPCS: 51702 ==

== ENCOUNTER 2022-06-10 12:36 | Outpatient (REF) | payer OTHER, SELFPAY ==
--- NOTE | ~2022-06-10 | CT_ITS ---
EXAMINATION: CT HEAD WITHOUT CONTRAST CLINICAL INFORMATION: Headache COMPARISON: None available. TECHNIQUE: Contiguous axial imaging was performed from the skull base to vertex without intravenous administration of contrast. This CT examination was performed using dose optimization techniques as appropriate, variously including the following: *Automated exposure control *Adjustment of mA and/or kV according to patient size (this includes techniques or standardized protocols for targeted exams where dose is matched to indication/reason for exam; i.e. extremities or head) *Use of iterative reconstruction technique DLP: 981 mGy-cm FINDINGS: There is no acute intra-axial, extra-axial bleed, masses or midline shift. There is no acute infarction evolution. There is no edema. There is diffuse periventricular hypodensity in both cerebral hemispheres without mass effect. The lateral ventricles are symmetrical in size and configuration without enlargement. Bone windows reveal no calvarial abnormality. There is no scalp soft tissue abnormality. There is mild mucoperiosteal thickening bilateral frontal ethmoid and sphenoid sinuses. The mastoid air cells are well-aerated. CT/CT head/brain wo IV con IMPRESSION: No acute intracranial process seen.
== END 2022-06-10 12:37 | disposition home or self-care (01) ==
LOC: HO.CT 12:36
PROVIDERS: PCP Internal Medicine; Visit Provider Internal Medicine
DX: R51.9 Headache, unspecified (principal)
CPT/HCPCS: 70450

== ENCOUNTER → 2022-06-22 13:53 | Outpatient (BNVA) | payer OTHER, SELFPAY | PROVIDERS: PCP Internal Medicine; Visit Provider Urology | DX: R33.9 Retention of urine, unspecified (principal) | CPT/HCPCS: 51702 ==

== ENCOUNTER → 2022-07-22 10:09 | Outpatient (BNVA) | payer OTHER, SELFPAY | PROVIDERS: PCP Internal Medicine; Visit Provider Urology | DX: R33.9 Retention of urine, unspecified (principal) | CPT/HCPCS: 51705 ==

== ENCOUNTER → 2022-08-19 13:00 | Outpatient (BNVA) | payer OTHER, SELFPAY | PROVIDERS: PCP Internal Medicine; Visit Provider Urology | DX: R33.9 Retention of urine, unspecified (principal) | CPT/HCPCS: 51705 ==

== ENCOUNTER 2022-08-23 08:18 | Outpatient (REF) | payer OTHER, SELFPAY ==
--- NOTE | ~2022-08-23 | XR_ITS ---
EXAMINATION: XR THORACIC SPINE XR LUMBAR SPINE CLINICAL INFORMATION: Back pain. COMPARISON: CT abdomen of 10/29/2021. CT chest of 01/20/2019. TECHNIQUE: 3-view thoracic spine and 4-view lumbar spine. FINDINGS: THORACIC SPINE: There is calcification of the anterior longitudinal ligament and right lateral aspects with bridging of the vertebral bodies from T1 through T12. No acute fracture Is identified. There is minimal scoliosis convex right. No abnormal paraspinal line bulge is appreciated. Pedicles appear intact. LUMBAR SPINE: There are 5 [id number] lumbar vertebrae. No acute fracture, spondylolisthesis or spondylolysis appreciated. Pedicles are intact. There is disc space narrowing seen at the L4-L5 level. There is spurring L1 through L3 and L4-L5. There is facet arthropathy seen bilaterally L4 through S1. There is degenerative sclerosis seen involving the inferior aspect of the sacroiliac joints with question of ankylosis of the right sacroiliac joint. There is calcification of the abdominal aorta. 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 No acute fracture or destructive bony lesion is appreciated. There is degenerative disc disease and facet arthropathy L4 through S1. No acute fracture, spondylolisthesis or spondylolysis.
--- NOTE | ~2022-08-23 | XR_ITS ---
EXAMINATION: XR THORACIC SPINE XR LUMBAR SPINE CLINICAL INFORMATION: Back pain. COMPARISON: CT abdomen of 10/29/2021. CT chest of 01/20/2019. TECHNIQUE: 3-view thoracic spine and 4-view lumbar spine. FINDINGS: THORACIC SPINE: There is calcification of the anterior longitudinal ligament and right lateral aspects with bridging of the vertebral bodies from T1 through T12. No acute fracture Is identified. There is minimal scoliosis convex right. No abnormal paraspinal line bulge is appreciated. Pedicles appear intact. LUMBAR SPINE: There are 5 [id number] lumbar vertebrae. No acute fracture, spondylolisthesis or spondylolysis appreciated. Pedicles are intact. There is disc space narrowing seen at the L4-L5 level. There is spurring L1 through L3 and L4-L5. There is facet arthropathy seen bilaterally L4 through S1. There is degenerative sclerosis seen involving the inferior aspect of the sacroiliac joints with question of ankylosis of the right sacroiliac joint. There is calcification of the abdominal aorta. 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 No acute fracture or destructive bony lesion is appreciated. There is degenerative disc disease and facet arthropathy L4 through S1. No acute fracture, spondylolisthesis or spondylolysis.
== END 2022-08-23 08:19 | disposition home or self-care (01) ==
LOC: HO.XRAY 08:18
PROVIDERS: PCP Internal Medicine; Visit Provider Internal Medicine
DX: M54.6 Pain in thoracic spine (principal)
CPT/HCPCS: 72070; 72100

== ENCOUNTER 2022-09-12 08:34 | Emergency (ER) | payer OTHER, MEDICARE, SELFPAY ==
[2022-09-12 08:47] VITALS: BP 146/87; PULSE 115; RESP 18; TEMP 36.8; O2SAT 96; BMI 23.4
--- NOTE | 2022-09-12 10:22 | ED.GENADULT ---
HPI - General Adult General Chief complaint: Fall Stated complaint: Fall / back pain Time Seen by Provider: 09/12/22 09:52 Source: patient and family (Spouse) Mode of arrival: ambulatory Limitations: no limitations History of Present Illness HPI narrative: A 72-year-old male with history of DM 2, urinary incontinence with chronic indwelling Myles catheter, patient lives home with his normally walk with a cane patient sustained a mechanical fall 2 weeks ago was seen and evaluated by his PCP, patient been taking muscle relaxant that is not controlling patient's pain, patient is complaining of headache and neck pain, having more difficulty to ambulate due to severe pain in the lower back, patient had x-ray of the low back which showed DDD. Patient with chronic indwelling Myles catheter that is needed to be changed. No CP, no SOB, no abdominal pain. Related Data Home Medications Medication Instructions Recorded Confirmed terazosin 10 mg capsule 10 mg PO BEDTIME 01/18/22 08/21/22 Previous Rx's Medication Instructions Recorded blood-glucose meter (Blood Glucose #1 ea 06/11/21 Monitoring kit) lancets 26 gauge #100 ea 08/12/21 blood sugar diagnostic (ReliOn #50 ea 11/02/21 Prime Test Strips) albuterol sulfate 90 mcg/actuation 2 puff PO Q6H PRN for wheezing #17 04/14/22 aerosol inhaler grams finasteride 5 mg tablet (Proscar) 5 mg PO DAILY 90 days #90 tabs 04/14/22 omeprazole 20 mg capsule,delayed 20 mg PO DAILY #90 caps 04/14/22 release bupropion HCl 300 mg 24 hr tablet, 300 mg PO DAILY #90 tabs 07/21/22 extended release fluoxetine 20 mg capsule 20 mg PO DAILY #90 caps 07/21/22 metformin 500 mg tablet 500 mg PO BID #180 tabs 07/21/22 meloxicam 15 mg tablet 15 mg PO DAILY #14 tabs 08/21/22 Allergies Allergy/AdvReac Type Severity Reaction Status Date / Time acetaminophen [Tylenol] Allergy Unknown stomach Verified 08/21/22 11:12 upset Review of Systems Review of Systems: Insert review of s [facility] Past Medical History Medical History Benign prostatic hyperplasia (BPH) with post-void dribbling 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 Urinary incontinence Surgical History History of back surgery History of toe surgery Family History Family History Other Mental health disorder Social History Social History Household Members: Spouse and Other Household Members Other:: pets Housing: House Do you presently have visiting nurse or other home services: No Alcohol intake: never Patient Tobacco Use Status: Current everyday Tobacco user Tobacco use type: Cigarette Cigarette Packs Per Day: 0.5 Cigarettes Per Day: 10 e-Cigarette/Vaping Use: Never Used Second Hand Smoke Exposure: No Advance Directives: No Advance Directives Information Provided: Yes service: No Current occupational status: retired and disabled Current occupational exposures/hazards: No Cognitive needs: Yes (cane) Hearing needs: No Vision needs: Yes (reading glasses) Physical Exam ED Vital Signs: Vital Signs - 24 hr 09/12/22 08:47 09/12/22 11:53 Temperature 98.2 F 97.8 F Pulse Rate 115 H 101 H Respiratory Rate 18 18 Blood Pressure 146/87 H 163/81 H Pulse Oximetry 96 97 Oxygen Delivery Method Room Air Room Air BMI result Body Mass Index 23.4 Vital signs have been reviewed as appeared to be correct. Blood pressure normal. Heart rate normal. Respiration rate normal. Temperature normal. Oxygen saturation normal. Appearance: Alert. Oriented X3. No acute distress. Head: Normal external exam. Normocephalic. Atraumatic. No Kinney signs noted. No raccoon eyes noted Eyes: PERRLA. EOMI. Conjunctiva and sclera normal. Eyelids normal. ENT: TM's Normal. Pharynx normal. Uvula midline. Moist mucous membranes. No trismus noted. No drooling noted. No muffled voice noted. Neck: Normal inspection. Neck supple. FROM. No adenopathy. Thyroid Normal. No meningeal signs. No neck mass noted. CVS: Normal heart rate and rhythm. Heart sound normal. No murmurs noted. Pulses normal throughout. Respiratory: No respiratory distress. Painless inspiration. Breath sounds normal. No wheezes/rales/rhonchi noted. Chest nontender. No accessory muscle usage noted or decreased air movement noted. Abdomen: Soft and nontender. Bowel sounds normal in all 4 quadrants. No distention noted. No organomegaly noted. No visible injury noted. Back: No CVA tenderness. Full range of motion noted. Skin: Skin warm and dry. Normal skin color. Normal skin turgor. No rashes/lesions/lacerations noted. Extremities: No lower extremity edema. Extremities exhibit normal range of motion. Extremities nontender. Neuro: Oriented X 3. Cranial nerve exam: II-XII are grossly intact No motor deficit. No sensory deficit. Reflexes normal. Course Course Course Narrative: 1. Left frontal subdural hematoma appear acute despite patient fall was 2 weeks ago the case was discussed with Dr. Forman at [facility] who accepted the transfer for further evaluation. 2. 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 3. UTI Levaquin. Medications Administered Discontinued Medications Generic Name Dose Route Start Last Admin Trade Name Freq PRN Reason Stop Dose Admin Cefuroxime Axetil 500 mg 09/12/22 11:40 09/12/22 11:51 Cefuroxime Axetil 500 Mg Tablet PO 09/12/22 11:41 500 mg ONCE ONE Administration Lidocaine HCl 10 ml 09/12/22 10:17 09/12/22 10:25 Lidocaine Hcl 2 % Urojet 10 Ml Jel.Pf.Tom TOPICAL 09/12/22 10:18 10 ml ONCE ONE Administration Oxycodone HCl 5 mg 09/12/22 10:09 09/12/22 10:24 Oxycodone Hcl Immed Release 5 Mg Tablet PO 09/12/22 10:10 5 mg ONCE ONE Administration Medical Decision Making Differential Diagnosis Differential Diagnoses: The differential diagnosis associated with the presentation includes (Intracranial bleed, cervical spine fracture, electrolyte abnormalities, severe anemia, chronic back pain.) Admission/Observation Consideration of admission/observation: Escalation of care including admission/observation considered Lab Data MDM Lab Attestation statement: I reviewed the patient's lab results. 09/12/22 09:22 09/12/22 09:22 Labs: Lab Results 09/12/22 09/12/22 09/12/22 Range/Units : 09:22 10:38 WBC 8.5 (4.8-10.8) X10*3/uL RBC 4.39 L (4.60-5.80) X10*6/uL Hgb 12.4 L (14.0-18.0) g/dl Hct 37.3 L (42.0-52.0) % MCV 85.0 (80.0-98.0) fL MCH 28.2 (27.0-33.0) pg MCHC 33.2 (31.0-36.0) g/dl RDW 15.0 (11.0-16.0) % Plt Count 259 (160-400) X10*3/uL MPV 8.9 L (9.4-12.4) fL Absolute Nucleated RBC 0.020 H (0.0-0.012) X10*3/uL Nucleated RBC % (auto) 0.2 (0.0-0.2) /100WBC Sodium 135 (135-145) mmol/L Potassium 4.3 (3.3-5.1) mmol/L Chloride 101 (96-108) mmol/L Carbon Dioxide 22 (22-29) mmol/L Anion Gap 16 (12-20) BUN 13 (9-16) mg/dL Creatinine 0.70 (0.5-1.4) mg/dL Estim Creat Clear Calc 114.0 Estimated GFR > 60 Random Glucose 211 H (60-115) mg/dL Calcium 10.0 D (8.4-10.2) mg/dL Magnesium 2.1 (1.6-2.6) mg/dL Total Bilirubin 0.4 (0.0-1.0) mg/dL Direct Bilirubin 0.2 (0.0-0.5) mg/dL AST 30 (5-37) U/L ALT 8 (0-40) U/L Alkaline Phosphatase 632 H (39-117) U/L Total Protein 7.7 (6.5-8.0) g/dL Albumin 3.8 (3.5-5.0) g/dL Lipase 12 (8-78) U/L Urine Color Yellow Urine Appearance Cloudy Urine pH 5.5 (5.0-9.0) Ur Specific [place] 1.025 (1.005-1.025) Urine Protein 30 (1+) H (Neg-Trace) mg/dL Urine Glucose (UA) Negative (Negative) mg/dL Urine Ketones Trace (Negative) mg/dL Urine Blood Moderate (2+) H (Negative) Urine Nitrite Positive H (Negative) Ur Leukocyte Esterase Moderate (2+) H (Negative) Urine RBC >20 H (0-2) /HPF Urine WBC >50 H (0-5) /HPF Ur Squamous Epith Cells 0-2 (0-2) /HPF Urine Bacteria 2+ (None Seen) Hyaline Casts 3-5 (0-2) /LPF Independent Interpretation I performed an independent interpretation of an: CT Scan (Head/cervical spine: Left frontal subdural hematoma, suspicion for multiple metastases to the C-spine.) Radiology Impression Discussion of test interpretation with radiology: I have reviewed the radiologist's reading. Discharge Plan Discharge Clinical Impression: Subdural hematoma, Metastatic cancer to spine, Back pain, Acute UTI Patient Disposition: [facility] Transfer Details: [facility] ED as a trauma transfer. Prescriptions: No Action (DME) lancets 26 gauge misc See Rx Instructions miscellaneous .MEDSUPPLY Qty: 100 0RF Rx Instructions: check BS 1-2x/day (DME) ReliOn Prime Test Strips Strip See Rx Instructions miscellaneous .MEDSUPPLY Qty: 50 0RF Rx Instructions: check bs 1-2/day fluoxetine 20 mg capsule 20 mg PO DAILY Qty: 90 0RF metformin 500 mg tablet 500 mg PO BID Qty: 180 1RF bupropion HCl 300 mg tablet extended release 24 hr 300 mg PO DAILY Qty: 90 1RF (DME) blood-glucose meter [Blood Glucose Monitoring] Kit See Rx Instructions miscellaneous .MEDSUPPLY Qty: 1 0RF Rx Instructions: As directed albuterol sulfate 90 mcg/actuation HFA aerosol inhaler 2 puff PO Q6H PRN (Reason: for wheezing) Qty: 17 3RF finasteride [Proscar] 5 mg tablet 5 mg PO DAILY 90 Days Qty: 90 1RF omeprazole 20 mg capsule,delayed release(DR/EC) 20 mg PO DAILY Qty: 90 1RF meloxicam 15 mg tablet 15 mg PO DAILY Qty: 14 0RF terazosin 10 mg capsule 10 mg PO BEDTIME
--- NOTE | 2022-09-12 10:30 | PC.NURSE ---
pt remains alert and oriented, he was medicated for pain, general with headache and neck pain new valenzuela cath was placed after removal of his preexisting cath. non traumatic insertion
[2022-09-12 11:53] VITALS: BP 163/81; PULSE 101; RESP 18; TEMP 36.6; O2SAT 97
--- NOTE | 2022-09-12 12:05 | PC.NURSE ---
pt was medicated for UTI he remains conversational, states minimal relief of pain
--- NOTE | 2022-09-12 13:20 | PC.NURSE ---
CT results revealed a left frontal subdural and c-spine changes suspicious for metastatic changes. Approx 200ml urinary output
[2022-09-12 13:27] VITALS: BP 156/75; PULSE 106; RESP 18; TEMP 36.7; O2SAT 98
--- NOTE | 2022-09-12 13:50 | MHC.EDTECH ---
@1301 called [facility] transfer line. Spoke with Nati. Gave patient demographics and call back number. Individual requested to speak with Dr. Lin. Dr. Lin took the call right away.
--- NOTE | 2022-09-12 13:52 | MHC.EDTECH ---
@[phone] [facility] calls back. Accepted the patient to [facility] ED. Accepting is Dr. Forman to the ER.
--- NOTE | 2022-09-12 13:53 | MHC.EDTECH ---
@1310 called [facility] due to pt [facility]. [facility] books the trauma transfer for 1600.
--- NOTE | 2022-09-12 13:54 | MHC.EDTECH ---
@0915 called [facility] to see if they can transfer the patient sooner. [facility] states they can transfer the patient and be here in less than an hour.
--- NOTE | 2022-09-12 13:56 | MHC.EDTECH ---
@[phone] called [facility] back and booked the transfer with them. ETA: 15 minutes.
--- NOTE | 2022-09-12 13:57 | MHC.EDTECH ---
@[phone] called [facility] to cancel the booking with them. The individual on the phone states she will cancel the transfer. At this time, waiting for [facility] to picking tech the patient.
--- NOTE | 2022-09-12 14:08 | PC.NURSE ---
attempt to call [facility] for nurse, awaiting call back
== END 2022-09-12 14:20 | disposition short-term general hospital (02) ==
PROVIDERS: Emergency Provider Emergency Medicine; PCP Internal Medicine
DX: S06.5XAA Traumatic subdural hemorrhage with loss of consciousness status unknown, initial encounter (principal); C79.51 Secondary malignant neoplasm of bone; N39.0 Urinary tract infection, site not specified; M54.50 Low back pain, unspecified; R51.9 Headache, unspecified; M54.2 Cervicalgia; X58.XXXA Exposure to other specified factors, initial encounter; Y93.9 Activity, unspecified; Y92.9 Unspecified place or not applicable; Y99.9 Unspecified external cause status; Z79.899 Other long term (current) drug therapy
CPT/HCPCS: 36415; 51702; 70450; 72125; 80048; 80076; 81001; 83690; 83735; 85027; 87086; 87088; 87186; 99285